=== PATIENT | female | born 1965 | race Caucasian/White ===

== ENCOUNTER 2017-10-09 11:20 | Emergency (ER) | payer SELFPAY ==
[2017-10-09 11:20] VITALS: BP 123/80; PULSE 90; RESP 18; TEMP 36.1; O2SAT 100; BMI 37.8
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
== END 2017-10-09 12:27 | disposition home or self-care (01) ==
LOC: ED 12:21
PROVIDERS: Emergency Provider Emergency Medicine; Family Provider Family Medicine; PCP Family Medicine
DX: S13.4XXA Sprain of ligaments of cervical spine, initial encounter (principal); S29.012A Strain of muscle and tendon of back wall of thorax, initial encounter; S16.1XXA Strain of muscle, fascia and tendon at neck level, initial encounter; V43.51XA Car driver injured in collision with sport utility vehicle in traffic accident, initial encounter; Y93.9 Activity, unspecified; Y92.410 Unspecified street and highway as the place of occurrence of the external cause; Y99.8 Other external cause status; F32.9 Major depressive disorder, single episode, unspecified; F41.9 Anxiety disorder, unspecified; Z72.0 Tobacco use
CPT/HCPCS: 99282

== ENCOUNTER 2019-06-25 10:07 | Inpatient (IN) | payer OTHER, SELFPAY ==
[2019-06-25] VITALS (11 sets, daily range): BP systolic 90–153; BP diastolic 53–64; PULSE 96–121; RESP 18–26; TEMP 36.6–38.3; O2SAT 94–98; BMI 33.5; BMI 34.6; BMI 34.7
--- NOTE | 2019-06-25 10:30 | EKG12_ITS ---
Test Reason : SOB Blood Pressure : / mmHG Vent. Rate : 113 BPM Atrial Rate : 113 BPM P-R Int : 142 ms QRS Dur : 086 ms QT Int : 318 ms P-R-T Axes : 054 014 045 degrees QTc Int : 436 ms Sinus tachycardia with Premature atrial complexes Otherwise normal ECG Confirmed by COLLEEN SCHROEDER, DONATO ([id number]), editor city [place] ROGERS ([id number]) on 06/30/2019 10:32:50 AM Referred By: WENDIE Confirmed By:REGAN MACIAS MD
--- NOTE | 2019-06-25 10:32 | ED.DCSUM_ITS ---
History of Present Illness Chief Complaint: Shortness of Breath Onset: Today Narrative: Patient presents for evaluation of shortness of breath. Patient tells me that she had had similar symptoms a few weeks ago but got better. Sunday she came home from work and felt exhausted. She notes headache, myalgias, cough, fever, and now shortness of breath. She states she is a smoker and has a diagnosis of COPD but does not take any medications for it. No vomiting or diarrhea. She states she is pretty much been in bed the past couple days has not really had much to eat or drink. Past Medical History - Allergies and Home Meds Allergies/Adverse Reactions: Allergies No Known Allergies Allergy (Verified 06/25/19 10:10) Primary Care Physician: Forrest Raphael MD [STAFF PHYSICIAN] - Surgical History: cholecystectomy, - - Breast reduction and tonsillectomy and adenoidectomy Smoking Status: Former smoker - Family History Maternal Family History: Reports: Heart Disease Review of Systems General: Reports: Chills, Fever, Malaise. Denies: Sweats Eyes: Denies: Visual changes - bilaterally, Diplopia ENT: Denies: Rhinorrhea, Sore throat Cardiovascular: Denies: Chest pain, Palpitations Respiratory: Reports: Dyspnea, Cough, Sputum, Dyspnea on exertion Gastrointestinal: Denies: Abdominal pain, Nausea, Vomiting, Diarrhea, Melena, Hematochezia Genitourinary: Denies: Dysuria, Hematuria, Frequency Musculoskeletal: Reports: Myalgias. Denies: Back pain, Extremity Pain Skin: Denies: Rash, Wounds Neurological: Reports: Headache. Denies: Weakness, Numbness Physical Exam Vital Signs/Narrative: Vital Signs Temp Pulse Resp BP Pulse Ox 06/25/19 10:25 115 H 96 06/25/19 10:08 98 F 121 H 22 H 153/58 H 98 Inital Vital Signs reviewed: Yes General: Well nourished, Well developed, No Acute Distress Head: Normocephalic, Atraumatic Eyes: Perrl, EOMI ENT: No rhinorrhea, Dry mucous membranes Neck: Supple, Nontender Cardiovascular: Regular rate, No murmurs, Tachycardia Respiratory: No distress, CTA bilaterally, Chest nontender, Rhonchi, Wheezing, Decreased Air Movement Abdomen: Soft, Nontender, Nondistended, Normal bowel sounds Back: Nontender, Normal Inspection Extremities: Nontender, No edema Skin: Normal color, No rash Neurological: Alert, Oriented x3, Cranial nerves II-XII grossly intact, Normal Strength, Normal Sensation Psychological: Normal affect, Normal Mood Diagnostic/Tx/Re-eval - Rhythm Strip Rhythm Strip: Sinus Tach Rate: 113 Ectopy: PAC(s) - Medical Decision Making Influenza was negative. White count elevated at 23,000. Normal lactic acid and troponin. Chest x-ray shows a hilar consolidation. This would be most consistent with pneumonia. A CT of the chest was obtained to rule out obvious tumor. She received aerosols, fluids, and antibiotics of Rocephin and azithromycin. She did spike a fever. Our plan is admission into the hospital. ED Disposition - Plan for ED Patient: Disposition: Acute Care Hospital [facility] Diagnosis: Pneumonia, Sepsis, Dehydration Referrals: Forrest Raphael MD [STAFF PHYSICIAN] -
[2019-06-25] MEDS: Ipratropium/Albuterol Sulfate 3 ML AMPUL.NEB INHALATION ×3 (10:50→20:29)
[2019-06-25] MEDS: Albuterol 2.5 MG/3 ML VIAL.NEB. INHALATION (10:50)
[2019-06-25] MEDS: 0.9% Normal Saline 1,000 ML 999 ML IV (11:01)
[2019-06-25 11:15] LABS: Absolute Lymphocyte Count 2.65 X10^3/uL (0.83-4.51); Absolute Neutrophil Count 18.5 X10^3/uL (2.0-7.7); Basophil# 0.07 X10^3/uL; Basophil% 0.3 % (0-1); Eosinophil# 0.02 X10^3/uL; Eosinophils% 0.1 % (0-5); Hematocrit 41.5 % (37-47); Lymphocyte # 2.65 X10^3/ul (4.0); Lymphocyte % 11.4 % (19-41); Mean Corp Hgb Conc 33.7 g/dL (32-36); Mean Corpuscular Hgb 31.3 pg (27.0-32.0); Mean Corpuscular Volume 92.8 fL (81-99); Mean Platelet Vol. 9.1 fl (6.2-12.0); Monocyte# 1.86 X10^3/uL; NRBC Flagged by Analyzer 0 % (0-5); Neutrophil # 18.53 X10^3/uL (2.7-7.7); Neutrophil % 79.8 % (47-70); POSITIVE DIFFERENTIAL YES; Platelet Count 222 K/mm3 (150-450); RBC Distribution Width CV 12.6 % (11.6-14.6); RBC Distribution Width SD 42.9 fl (35.1-43.9); Red Blood Count 4.47 M/mm3 (4.2-5.4); White Blood Count 23.2 K/mm3 (4.4-11.0)
--- NOTE | 2019-06-25 11:18 | RAD_ITS ---
STUDY: X-RAY CHEST REASON FOR EXAM: Female, 53 years old. Cough/sob/fever TECHNIQUE: PA and lateral views of the chest. COMPARISON: Comparison is made with prior study dated March 03, 2016. FINDINGS: EKG electrode are seen. Dense infiltrate in the superior segment of the left lower lobe. Possible enlargement of the left hilum. Radiographic follow-up is recommended. There is no demonstrated pleural abnormality. Normal size heart. Normal visualized pulmonary arteries. There is atherosclerotic calcification of the aortic arch with tortuosity. There are diffuse degenerative changes of the visualized thoracic spine. Normal visualized ribs, clavicles, and shoulders. Surgical clips are seen in the epigastric region. RAD/Chest PA and Lateral IMPRESSION: Dense infiltrate in the superior segment of the left upper lobe with findings suggestive of enlargement of the left hilum. CT scan is recommended for further evaluation. Electronically Signed: Marcos James, at 12:10 EST , Service support ,
[2019-06-25 11:20] LABS: Differential Indicated SCAN CRITERIA MET
[2019-06-25 11:34] LABS: Differential Comment SCANNED; Red Cell Morphology NORM C+C NORMAL (NORM C&C)
[2019-06-25 11:35] LABS: ALB/GLOB Ratio 0.7 RATIO (0.9-2.4); AST(SGOT) 10 U/L (15-37); Alanine Aminotransfer ALT/SGPT 15 U/L (13-56); Albumin, Serum 3.2 g/dL (3.2-5.0); Alkaline Phosphatase 69 U/L (45-117); Anion Gap 9 (5-15); BUN 15 mg/dL (7-18); BUN/Creat Ratio 16.6 RATIO (10-20); Calcium,Total 9.4 mg/dL (8.5-10.1); Chloride 106 mmol/L (98-107); EST Glomerular Filtration Rate 69 mL/min (>60); Est Glom Filt Rate - Afr Amer 83 mL/min (>60); Globulin 4.3 g/dL (2.2-4.2); Glucose 92 mg/dL (74-106); Protein, Total 7.5 g/dL (6.4-8.2); Sodium Level 136 mmol/L (136-145)
[2019-06-25] MEDS: Acetaminophen 500 MG Tablet 1000 MG PO (12:18)
--- NOTE | 2019-06-25 12:29 | CT_ITS ---
STUDY: CT CHEST WITH CONTRAST REASON FOR EXAM: Female, 53 years old. ABNORMAL CXR RADIATION DOSAGE (If Supplied By Facility): CTDIvol = ( 17.51 ) mGy, DLP = ( 851.68 ) mGycm TECHNIQUE: Transaxial imaging was performed following intravenous administration of IV 100mL Isovue-300. Multiplanar coronal and sagittal images were reformatted. Individualized dose optimization techniques were used for this CT. COMPARISON: Comparison is made with prior CT scan of the chest dated October 27, 2012 and prior chest graft done earlier today. FINDINGS: There is dense consolidation in the superior segment of the left lower lobe. There is no demonstrated pleural abnormality. There are calcifications of the coronary arteries. Minimal pericardial thickening anteriorly. There are multiple small lymph nodes within the mediastinum, which are normal in size and morphology most compatible with reactive lymph hyperplasia. Mild enlargement of the inferior left hilar lymph nodes. Normal enhanced pulmonary arteries. Normal aorta arch and descending thoracic aorta. There are multi-level degenerative changes of the thoracic spine. Small hiatal hernia. Surgical clips are seen in the epigastric region. Bilateral adrenal enlargement more prominent on the left side. CT/Chest WITH Contrast IMPRESSION: Dense infiltration in the superior segment of the left lower lobe with mildly increased markings in the left infrahilar region. Correlation with bronchoscopy is recommended for further evaluation. Bilateral adrenal enlargement. Electronically Signed: Marcos James, at 13:11 EST , Service support ,
[2019-06-25] MEDS: Ceftriaxone 1 GM/50 ML BAG IV (13:07)
[2019-06-25] MEDS: 0.9% Normal Saline 1,000 ML 150 ML IV ×2 (13:09→22:13)
--- NOTE | 2019-06-25 13:26 | PCM.HP.STD ---
Problem List (1) Irritable bowel syndrome (IBS) Status: Chronic Qualifiers: Irritable bowel syndrome type: unspecified Qualified Code(s): K58.9 - Irritable bowel syndrome without diarrhea (2) Pneumonia Status: Acute Qualifiers: Pneumonia type: due to unspecified organism Laterality: left Lung location: lower lobe of lung Qualified Code(s): J18.9 - Pneumonia, unspecified organism (3) Sepsis Status: Acute Qualifiers: Sepsis type: sepsis due to unspecified organism Sepsis acute organ dysfunction status: without acute organ dysfunction Qualified Code(s): A41.9 - Sepsis, unspecified organism (4) Active tobacco use Status: Chronic History of Present Illness Date of Admission: 06/25/19 Chief Complaint: Cough, shortness of breath, generalised malaise - 3 days The patient is a 53 year old F with past medical history of COPD, not on oxygen, chronic smoker, who comes in with complaints of cough, generalized weakness, shortness of breath ongoing for 3 days. 2 weeks prior to admission, patient had upper respiratory symptoms that lasted for about 4 days. She improved mildly except for fatigue. Over the last 3 days prior to admission, she has had progressive fatigue as well as persistent cough, sometimes productive of yellowish sputum, fever, chills and progressive shortness of breath. She denied any sick contact. She lives alone. Denies any chest pain or dizziness or palpitations. Vitals in the ED temperature of 98F, heart rate 121, blood pressure 153/58, respiratory 22, SPO2 is 98% on room air. BC count is 23.2, hemoglobin 14.0, platelet count 222, BMP is unremarkable, bilirubin is 1.4, AST is 10, ALT is 15, ALP 69. Chest x-ray shows dense infiltrate in the superior segment of the left upper lobe. CT scan of the chest shows dense infiltration of superior segment of the left lower lobe with mildly increased markings in the left infrahilar region. 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 Denies: Weight Change Eyes: Denies: Blurred vision, Cataracts, Conjunctivae Inflammation, Pain, Redness, Vision Change HEENT: Denies: Difficulty Hearing, Difficulty Swallowing, Head Aches, Hearing Changes, Sinus Congestion, Sinus Drainage Cardiovascular: Denies: Chest Pain, Claudication, Light Headedness, Orthopnea, Palpitations Respiratory: Reports: Cough, Shortness of Breath, Shortness of breath at rest, Shortness of breath upon exertion, Sputum production, Wheezing. Denies: Hemoptysis Gastrointestinal: Denies: Abdominal Pain, Constipation, Hematemesis, Hematochezia, Nausea, Vomiting Genitourinary: Denies: Dysuria, Frequency, Incontinence Musculoskeletal: Denies: Joint Pain, Joint stiffness, Joint swelling, Joint Tenderness Skin: Denies: Rash, Wounds Neurological: Denies: Difficulty swallowing, Focal weakness, Numbness, Tingling Psychiatric: Denies: Anxiety, Depression, Homicidal Ideations, Suicidal Ideations Hematologic/ Lymphatic: Denies: Easy Bruising, Easy Bleeding VTE Information - Inpt Only VTE Present on Admission: No VTE Pharm Prophylaxis ordered?: Yes Patient Problems: Active and Suspected Problems Pneumonia (Acute) Sepsis (Acute) Dehydration (Acute) - Physical Exam Vitals/I&O's: Vital Signs Temp Pulse Resp BP Pulse Ox 101.0 F H 107 H 18 90/62 94 06/25/19 11:47 06/25/19 13:11 06/25/19 13:11 06/25/19 13:11 06/25/19 13:11 Oxygen Delivery Method Room Air Weight: 94.347 kg Body Mass Index (BMI) 33.5 Intake and Output for Last 24 Hours 06/23/19 06/24/19 06/25/19 23:59 23:59 23:59 Intake Total 1000 / 1000 Balance 1000 / 1000 General: Alert, Oriented x3, Cooperative, - - in mild respiratory distress but not on oxygen HEENT: Atraumatic, PERRLA, EOMI, Normocephalic Oral: Moist Mucosa Neck: Supple Lungs: Diminished - coarse breath sounds, worse in left lower lobe, scattered wheezes Cardiovascular: Regular rate, Regular Rhythm, Normal S1, Normal S2, No murmurs, Tachycardic Abdomen: Bowel Sounds Present, Soft, Non Tender, Non-Distended, No Hepato-splenomegaly Extremities: No edema Skin: No rashes, No breakdown Musculoskeletal: No Tenderness to Palpation of Joints or Extremities Lymphatic: No Cervical, Supraclavicular, or Inguinal Adenopathy Neurological: Cranial nerves II-XII grossly intact, Neuro grossly intact Psych/Mental Status: Normal Affect, Appropriate Microbiology Past 72 Hours 06/25/19 11:05 Mucosa - Nose Influenza Types A,B Direct FA (ELIS) - Final Laboratory Results 06/25/19 11:00: WBC 23.2 H, RBC 4.47, Hgb 14.0, Hct 41.5, MCV 92.8, MCH 31.3, MCHC 33.7, RDW Std Deviation 42.9, RDW Coeff of Jackie 12.6, Plt Count 222, MPV 9.1, Immature Gran % (Auto) 0.400, Neut % (Auto) 79.8 H, Lymph % (Auto) 11.4 L, [place] % (Auto) 8.0, Eos % (Auto) 0.1, Baso % (Auto) 0.3, Absolute Neuts (auto) 18.5 H, Absolute Lymphs (auto) 2.65, Nucleated RBC % 0, Differential Comment SCANNED, Diff Path Review September, RBC Morphology NORM C+C 06/25/19 11:00: Lactic Acid 2.0 06/25/19 11:00: Sodium 136, Potassium 4.0, Chloride 106, Carbon Dioxide 21.0, Anion Gap 9, BUN 15, Creatinine 0.90, Estim Creat Clear Calc 66.90, Est GFR (MDRD) Af Amer 83, Est GFR (MDRD) Non-Af 69, BUN/Creatinine Ratio 16.6, Glucose 92, Calcium 9.4, Total Bilirubin 1.40 H, AST 10 L, ALT 15, Alkaline Phosphatase 69, Total Protein 7.5, Albumin 3.2, Globulin 4.3 H, Albumin/Globulin Ratio 0.7 L Current Medications Sodium Chloride () 1,000 mls @ 150 mls/hr IV .Q6H40M ONE Stop: 06/25/19 17:09 Last Admin: 06/25/19 13:09 Dose: 150 mls/hr Documented by: Assessment/Plan All Active Problems Pneumonia (Acute) Sepsis (Acute) Dehydration (Acute) COPD with acute exacerbation (Acute) Acute bronchitis (Acute) Acute hypoxemic respiratory failure (Acute) 53 year old F with past medical history of COPD, not on oxygen, chronic smoker, who comes in with complaints of cough, generalized weakness, shortness of breath ongoing for 3 days. 1. Sepsis secondary to Pneumonia (temperature 101, heart rate more than 90, respiratory rate more than 20, elevated WBC count) Lactic acid is 2.0. Source of infection is pneumonia Started on IV ceftriaxone and azithromycin; Continue same antibiotics, IVF 150mls/hr normal saline Repeat blood work in a.m. 2. Pneumonia, likely postviral, ongoing for 3 days, recent history of upper respiratory symptoms 2 weeks prior Infiltrate seen on chest x-ray and also on CT scan of the chest in the left lower lobe/hilar region Started on IV ceftriaxone and azithromycin Will continue same antibiotics, breathing treatments, incentive spirometer May need pulmonology outpatient follow-up 3. COPD, not in acute exacerbation, continue on scheduled breathing treatment 4. Anxiety/depression/irritable bowel syndrome, continue on escitalopram 5. DVT prophylaxis?low risk; early ambulation recommended Code Visit Inpatient E&M: 67507 Init Hosp L2
--- NOTE | 2019-06-25 13:30 | NURSING ---
111 PAINTSIL PNEUMONIA, SEPSIS
[2019-06-25 15:04] LABS: Reflex Lactate? Y
[2019-06-25 16:15] LABS: Lactic Acid 2.2 mmol/L (0.4-1.9)
[2019-06-26] VITALS (14 sets, daily range): BP systolic 93–118; BP diastolic 56–65; PULSE 63–90; RESP 16–22; TEMP 36.7–37.1; O2SAT 94–97
[2019-06-26] MEDS: 0.9% Normal Saline 1,000 ML 150 ML IV (05:05)
[2019-06-26 05:47] LABS: Absolute Lymphocyte Count 2.01 X10^3/uL (0.83-4.51); Absolute Neutrophil Count 8.2 X10^3/uL (2.0-7.7); Basophil# 0.02 X10^3/uL; Basophil% 0.2 % (0-1); Eosinophil# 0.28 X10^3/uL; Eosinophils% 2.4 % (0-5); Hematocrit 33.7 % (37-47); Hemoglobin 11.1 g/dL (12.0-15.0); Lymphocyte # 2.01 X10^3/ul (4.0); Lymphocyte % 17.2 % (19-41); Mean Corp Hgb Conc 32.9 g/dL (32-36); Mean Corpuscular Hgb 30.7 pg (27.0-32.0); Mean Corpuscular Volume 93.4 fL (81-99); Mean Platelet Vol. 9.8 fl (6.2-12.0); Monocyte# 1.09 X10^3/uL; Monocyte% 9.3 % (0-10); NRBC Flagged by Analyzer 0 % (0-5); Neutrophil # 8.24 X10^3/uL (2.7-7.7); Neutrophil % 70.7 % (47-70); Platelet Count 168 K/mm3 (150-450); RBC Distribution Width CV 12.8 % (11.6-14.6); RBC Distribution Width SD 44.1 fl (35.1-43.9); Red Blood Count 3.61 M/mm3 (4.2-5.4); White Blood Count 11.7 K/mm3 (4.4-11.0)
[2019-06-26 06:09] LABS: ALB/GLOB Ratio 0.7 RATIO (0.9-2.4); AST(SGOT) 8 U/L (15-37); Alanine Aminotransfer ALT/SGPT 14 U/L (13-56); Albumin, Serum 2.5 g/dL (3.2-5.0); Alkaline Phosphatase 56 U/L (45-117); Anion Gap 4 (5-15); BUN 11 mg/dL (7-18); BUN/Creat Ratio 21.7 RATIO (10-20); Calcium,Total 8.2 mg/dL (8.5-10.1); Chloride 110 mmol/L (98-107); Creatinine, Serum 0.51 mg/dL (0.55-1.02); EST Glomerular Filtration Rate 135 mL/min (>60); Est Glom Filt Rate - Afr Amer 163 mL/min (>60); Estimated Creatinine Clearance 118.05 ml/min; Globulin 3.7 g/dL (2.2-4.2); Glucose 87 mg/dL (74-106); Potassium 3.6 mmol/L (3.5-5.1); Protein, Total 6.2 g/dL (6.4-8.2); Sodium Level 137 mmol/L (136-145)
[2019-06-26] MEDS: Escitalopram Oxalate 10 MG Tablet PO (09:31)
[2019-06-26 10:26] LABS: Bedside Glucose 150 mg/dL (70-110)
--- NOTE | 2019-06-26 10:30 | NURSING ---
ambulated patient in hallway for walking spo2. pt remained 97% on room air. however, patient became nauseous, diaphoretic, and light headed. another nurse had to grab a wheel chair for the patient & wheeled pt back to room. BG obtained at 150. VSS. Notified dr rodriguez.
--- NOTE | 2019-06-26 10:32 | CASEMGMT ---
Assessment- SW completed assessment with patient Living situation- Patient lives alone in a 1 level home with no entry steps PCP: Sidney Cameron PA-C with [facility] Specialists: None, however physician wants patient to follow up with Dr Machado at d/c. Pharmacy: [facility] DME: None ADL's/IADL's: Patient is independent in all adls and iadls Past SNF/rehab: none Past HH: none LW: SW completed with patient this visit POA: SW completed with patient this visit SW spoke with patient and she is independent in all activities. She does not anticipate any needs at discharge. SW did complete Healthcare Power of Senior Oracle Adf Developer and Healthcare Living Will with patient. Copies were made and given to patient. A copy of each was also placed in patient's chart. Plan: Home no needs Chanel APPLE MSW
[2019-06-26] MEDS: Ipratropium/Albuterol Sulfate 3 ML AMPUL.NEB INHALATION ×2 (10:44→19:24)
[2019-06-26 11:38] LABS: Pathologist Review Reviewed
--- NOTE | 2019-06-26 12:03 | PCM.DC ---
- Discharge Diagnoses Current Active Problems: Current Active and Chronic Problems Pneumonia (Acute) Sepsis (Acute) Dehydration (Acute) Irritable bowel syndrome (IBS) (Chronic) Reason(s) for Visit for Discharge Instructions: Cogh, shortness of breath You will use the following diet at home:: Regular Your food should be the consistency of: Regular Your liquids should be the consistency of: Regular/Thin Discharge Activity: Return to Normal Activity Instructions: What Is Pneumonia?, Preventing Pneumonia, Treating Pneumonia, Getting Support for Quitting Smoking, Using a Nebulizer (Adult), Tips for Quitting Smoking (Cardiovascular), Planning to Quit Smoking, Staying Smoke-Free, The Benefits of Living Smoke Free Additional Instructions: Continue to take all your medications as prescribed. Continue to use your incentive spirometer. Complete your antibiotics. Follow-up with your primary care doctor. You have been referred to see a lung doctor for COPD Allergies/Adverse Reactions: Allergies No Known Allergies Allergy (Verified 06/25/19 10:10) Medications to take at Discharge Escitalopram Oxalate [Lexapro] 10 mg PO DAILY 06/25/19 Acetaminophen [Tylenol Tablet] 650 mg PO Q6H PRN PRN tab 06/26/19 Albuterol IH (ProAir) [Proair Hfa] 1 - 2 puff INHALATION Q4H PRN PRN 1 Days #1 inhaler 06/26/19 Amox/Clavulanate Tablet [Augmentin Tablet] 875 mg PO Q12H 6 Days #12 tab 06/26/19 Azithromycin 500 mg PO DAILY 1 Days #1 tab 06/26/19 Ensure Enlive 120 ml PO 4X/DAY 30 Days #120 liquid 06/26/19 Nicotine Polacrilex [Nicotine Gum] 2 mg BC Q2H PRN PRN #100 gum 06/26/19 Nicotine [Nicotine Patch] 1 ea TD DAILY 30 Days #30 [id number] 06/26/19 The following prescriptions were given: Amox/Clavulanate Tablet [Augmentin Tablet] 875 mg PO Q12H 6 Days #12 tab Transmission Status: Pending to [facility] Azithromycin 500 mg PO DAILY 1 Days #1 tab Transmission Status: Pending to [facility] Ensure Enlive 120 ml PO 4X/DAY 30 Days #120 liquid Transmission Status: Pending to [facility] Nicotine Polacrilex [Nicotine Gum] 2 mg BC Q2H PRN PRN #100 gum PRN Reason: Nicotine Craving Transmission Status: Pending to [facility] Nicotine [Nicotine Patch] 1 ea TD DAILY 30 Days #30 [id number] Transmission Status: Pending to [facility] Primary Care Physician: Forrest Raphael MD [STAFF PHYSICIAN] - Please follow up with your Primary Care Physician in: within 1-2 weeks Test Results: Test results from this visit will be discussed in further detail at your follow-up appointment, if applicable. Please Follow Up With: Israel Machado MD When: within 2 weeks Please Follow Up With: Savita Cameron PA Proposed Discharge Date: 06/26/19
--- NOTE | 2019-06-26 12:07 | DS.PCM_ITS ---
Discharge Date and Diagnosis - Problem List Patient Problems: Active and Suspected Problems Pneumonia (Acute) Sepsis (Acute) Dehydration (Acute) Date of Admission: 06/25/19 Date of Discharge: 06/26/19 - Primary Discharge Diagnosis Active and Suspected Problems Pneumonia (Acute) Sepsis (Acute) Nicotine dependence - Secondary Discharge Diagnosis Chronic Problems Irritable bowel syndrome (IBS) (Chronic) Active tobacco use (Chronic) Chronic right hip pain (Chronic) Hospital Course and Treatment Imaging Results: Clinical Impression(s) from Imaging Studies Chest X-Ray 06/25/19 11:18 IMPRESSION: Dense infiltrate in the superior segment of the left upper lobe with findings suggestive of enlargement of the left hilum. CT scan is recommended for further evaluation. Electronically Signed: Marcos Jacob, at 12:10 EST , Service support , Chest CT 06/25/19 12:29 IMPRESSION: Dense infiltration in the superior segment of the left lower lobe with mildly increased markings in the left infrahilar region. Correlation with bronchoscopy is recommended for further evaluation. Bilateral adrenal enlargement. Electronically Signed: Marcos James, at 13:11 EST , Service support , None Operations: None Procedures: None Summary of Care Provided: 53 year old F with past medical history of COPD, not on oxygen, chronic smoker, who comes in with complaints of cough, generalized weakness, shortness of breath ongoing for 3 days. 1. Sepsis secondary to Pneumonia (temperature 101, heart rate more than 90, respiratory rate more than 20, elevated WBC count) Lactic acid is 2.0. Source of infection is pneumonia Started on IV ceftriaxone and azithromycin continued on Augmentin and azithro mycin(3 days total) to complete 1 week therapy 2. Pneumonia, likely postviral, ongoing for 3 days, recent history of upper respiratory symptoms 2 weeks prior I treatment as above, encourage use of incentive spirometer, pulmonology outpatient follow-up within 2 weeks 3. COPD, not in acute exacerbation, managed on scheduled breathing treatment 4. Anxiety/depression/irritable bowel syndrome, continued on escitalopram 5. Nicotine dependence, advised to quit, given nicotine patches and gum Patient appears to have improved much quicker than anticipated. Hence her discharge Patient Problems: Active and Suspected Problems Pneumonia (Acute) Sepsis (Acute) Dehydration (Acute) Subjective: On the day of discharge, patient was seen and examined. She complains of some nausea and lost her IV access. She was given p.o. Zofran and antibiotics orally. Denied any fever or chills. Remains off oxygen. Did not qualify for oxygen on ambulation. Objective: General: Alert, Oriented x3, Cooperative, - - in mild respiratory distress but not on oxygen HEENT: Atraumatic, PERRLA, EOMI, Normocephalic Oral: Moist Mucosa Neck: Supple Lungs: Diminished - coarse breath sounds, worse in left lower lobe, scattered wheezes Cardiovascular: Regular rate, Regular Rhythm, Normal S1, Normal S2, No murmurs, Tachycardic Abdomen: Bowel Sounds Present, Soft, Non Tender, Non-Distended, No Hepato- splenomegaly Extremities: No edema Skin: No rashes, No breakdown Musculoskeletal: No Tenderness to Palpation of Joints or Extremities Lymphatic: No Cervical, Supraclavicular, or Inguinal Adenopathy Neurological: Cranial nerves II-XII grossly intact, Neuro grossly intact Psych/Mental Status: Normal Affect, Appropriate - Physical Exam Vitals/I&O's: Vital Signs Temp Pulse Resp BP Pulse Ox 98.1 F 90 16 113/65 94 06/26/19 08:25 06/26/19 10:45 06/26/19 10:45 06/26/19 08:25 06/26/19 10:45 Oxygen Delivery Method Room Air Weight: 98.1 kg Body Mass Index (BMI) 34.6 Intake and Output for Last 24 Hours 06/24/19 06/25/19 06/26/19 23:59 23:59 23:59 Intake Total 3665.0 / 3665.0 1857.5 / 1857.5 Balance 3665.0 / 3665.0 1857.5 / 1857.5 Microbiology Past 72 Hours 06/25/19 11:05 Mucosa - Nose Influenza Types A,B Direct FA (ELIS) - Final Laboratory Results 06/25/19 11:00: Diff Path Review Reviewed 06/25/19 15:32: Lactic Acid 2.2 H* 06/26/19 04:39: WBC 11.7 H, RBC 3.61 L, Hgb 11.1 L, Hct 33.7 L, MCV 93.4, MCH 30.7, MCHC 32.9, RDW Std Deviation 44.1 H, RDW Coeff of Jackie 12.8, Plt Count 168, MPV 9.8, Immature Gran % (Auto) 0.200, Neut % (Auto) 70.7 H, Lymph % (Auto) 17.2 L, [place] % (Auto) 9.3, Eos % (Auto) 2.4, Baso % (Auto) 0.2, Absolute Neuts (auto) 8.2 H, Absolute Lymphs (auto) 2.01, Nucleated RBC % 0 06/26/19 04:39: Sodium 137, Potassium 3.6, Chloride 110 H, Carbon Dioxide 23.0, Anion Gap 4 L, BUN 11, Creatinine 0.51 L, Estim Creat Clear Calc 118.05, Est GFR (MDRD) Af Amer 163, Est GFR (MDRD) Non-Af 135, BUN/Creatinine Ratio 21.7 H, Glucose 87, Calcium 8.2 L, Total Bilirubin 0.50, AST 8 L, ALT 14, Alkaline Phosphatase 56, Total Protein 6.2 L, Albumin 2.5 L, Globulin 3.7, Albumin/Globulin Ratio 0.7 L 06/26/19 04:39: Magnesium Pending 06/26/19 10:21: POC Glucose 150 H Current Medications Acetaminophen (Tylenol) 650 mg PO Q6H PRN PRN PRN Reason: Pain Score 1-10/Temp > 100.7 F Albuterol/Ipratropium (Duoneb) 3 ml INHALATION Q4HWA.RT [facility] Last Admin: 06/26/19 10:44 Dose: 3 ml Documented by: Amoxicillin/Clavulanate Potassium (Augmentin Tablet) 875 mg PO BID [facility] Azithromycin (Zithromax) 500 mg PO Q24 [facility] Escitalopram Oxalate (Lexapro) 10 mg PO DAILY [facility] Last Admin: 06/26/19 09:31 Dose: 10 mg Documented by: Sodium Chloride () 250 mls @ 15 mls/hr IV .[id number] PRN PRN Reason: Saline Flush Sodium Chloride () 250 mls @ 15 mls/hr IV .[id number] PRN PRN Reason: Additional IVPB Infusion Nutritional Formula (Lactose Free) (Ensure Enlive) 120 ml PO 4X/DAY [facility] Last Admin: 06/26/19 09:31 Dose: Not Given Documented by: Ondansetron HCl (Zofran) 4 mg IV Q8H PRN PRN PRN Reason: NAUSEA/VOMITING Ondansetron HCl (Zofran Odt) 4 mg PO Q8H PRN PRN PRN Reason: NAUSEA/VOMITING Sodium Chloride () 10 - 40 ml IV UD PRN PRN Reason: SALINE FLUSH Discharge Diet: No Restrictions Discharge Activity: Return to Normal Activity Home Medications: Medications to take at Discharge Escitalopram Oxalate [Lexapro] 10 mg PO DAILY 06/25/19 Acetaminophen [Tylenol Tablet] 650 mg PO Q6H PRN PRN tab 06/26/19 Albuterol IH (ProAir) [Proair Hfa] 1 - 2 puff INHALATION Q4H PRN PRN 1 Days #1 inhaler 06/26/19 Amox/Clavulanate Tablet [Augmentin Tablet] 875 mg PO Q12H 6 Days #12 tab 06/26/19 Azithromycin 500 mg PO DAILY 1 Days #1 tab 06/26/19 Ensure Enlive 120 ml PO 4X/DAY 30 Days #120 liquid 06/26/19 Nicotine Polacrilex [Nicotine Gum] 2 mg BC Q2H PRN PRN #100 gum 06/26/19 Nicotine [Nicotine Patch] 1 ea TD DAILY 30 Days #30 [email or web address] 06/26/19 Following Prescrptions Were Given to Patient: Amox/Clavulanate Tablet [Augmentin Tablet] 875 mg PO Q12H 6 Days #12 tab Transmission Status: Received by [facility] Azithromycin 500 mg PO DAILY 1 Days #1 tab Transmission Status: Received by [facility] Ensure Enlive 120 ml PO 4X/DAY 30 Days #120 liquid Transmission Status: Received by [facility] Nicotine Polacrilex [Nicotine Gum] 2 mg BC Q2H PRN PRN #100 gum PRN Reason: Nicotine Craving Transmission Status: Received by [facility] Nicotine [Nicotine Patch] 1 ea TD DAILY 30 Days #30 [email or web address] Transmission Status: Received by [facility] Albuterol IH (ProAir) [Proair Hfa] 1 - 2 puff INHALATION Q4H PRN PRN 1 Days #1 inhaler PRN Reason: Sob &/Or Wheezing Transmission Status: Received by [facility] Primary Care Physician: Forrest Raphael MD [STAFF PHYSICIAN] - Please follow up with your Primary Care Physician in: within 1-2 weeks Please Follow Up With: Israel Machado MD When: within 2 weeks Please Follow Up With: Savita Cameron PA Patient Instructions: Tips for Quitting Smoking (Cardiovascular), What Is Pneumonia?, Preventing Pneumonia, Treating Pneumonia, Planning to Quit Smoking, Getting Support for Quitting Smoking, Staying Smoke-Free, The Benefits of Living Smoke Free, Using a Nebulizer (Adult) Disposition: Home Minutes spent on discharge:: 40 Patient Condition:: Stable Medical Necessity - Tobacco Use Smoking Status: Current every day smoker Tobacco Use: Cigarettes Meaningful Use Info Meaningful Use Diagnoses (Choose all that apply): None applicable Code Visit Inpatient E&M: 38433 Disch Hosp
[2019-06-26] MEDS: Ondansetron ODT 4 MG Tablet PO (12:35)
--- NOTE | 2019-06-26 12:41 | CASEMGMT ---
CATALINA JAMISON NOTE: Dr Padilla asked for CATALINA JAMISON to check on pt's out-of-cost for medications E-scribed to [facility]. Call placed to [facility] at this time. Pt has not co-pay for the Nicotine gum, patch, or Pro-Air inhaler. Cost of both antibiotics combined will be under $9. Per tech @ [facility], the [facility] specialist is working on getting Ensure enlive processed through insurance. Pt made aware of all of the above. She states she does not want and will not be picking up the Ensure Enlive. Call placed back to [facility] and they were made aware. Toribio LEBLANC RN CM
[2019-06-26 13:03] LABS: Magnesium 2.2 mg/dL (1.6-2.6)
[2019-06-26] MEDS: Azithromycin 250 MG Tablet 500 MG PO (13:41)
[2019-06-26] MEDS: Amox/Clavulanate 875 MG Tablet PO ×2 (13:41→17:59)
--- NOTE | 2019-06-26 15:12 | PN_ITS ---
Patient Problems: Active and Suspected Problems Pneumonia (Acute) Sepsis (Acute) Dehydration (Acute) Reason for Visit: Follow-up on pneumonia Subjective: Patient was seen and examined. She feels improved but feels flushed and sweaty with occasional feeling cold. Her breathing is better. She was off balance on ambulation. Vitals/I&O's: Vital Signs Temp Pulse Resp BP Pulse Ox 98.6 F 65 20 H 118/56 L 96 06/26/19 14:25 06/26/19 14:25 06/26/19 14:25 06/26/19 14:25 06/26/19 14:25 Oxygen Delivery Method Room Air Weight: 98.1 kg Body Mass Index (BMI) 34.6 Intake and Output for Last 24 Hours 06/24/19 06/25/19 06/26/19 23:59 23:59 23:59 Intake Total 3665.0 / 3665.0 2552.5 / 2552.5 Balance 3665.0 / 3665.0 2552.5 / 2552.5 General: Alert, Oriented x3, Cooperative, No apparent distress HEENT: Atraumatic, PERRLA, EOMI, Normocephalic Oral: Moist Mucosa Neck: Supple Lungs: Clear to auscultation, Normal air movement Cardiovascular: Regular rate, Regular Rhythm, Normal S1, Normal S2, No murmurs Abdomen: Bowel Sounds Present, Soft, Non Tender, Non-Distended, No Hepato- splenomegaly Extremities: No edema Skin: No rashes Musculoskeletal: No Tenderness to Palpation of Joints or Extremities Lymphatic: No Cervical, Supraclavicular, or Inguinal Adenopathy Neurological: Cranial nerves II-XII grossly intact, Neuro grossly intact Psych/Mental Status: Normal Affect, Appropriate Microbiology Past 72 Hours 06/25/19 11:05 Mucosa - Nose Influenza Types A,B Direct FA (ELIS) - Final Laboratory Results 06/25/19 11:00: Diff Path Review Reviewed 06/25/19 15:32: Lactic Acid 2.2 H* 06/26/19 04:39: WBC 11.7 H, RBC 3.61 L, Hgb 11.1 L, Hct 33.7 L, MCV 93.4, MCH 30.7, MCHC 32.9, RDW Std Deviation 44.1 H, RDW Coeff of Jackie 12.8, Plt Count 168, MPV 9.8, Immature Gran % (Auto) 0.200, Neut % (Auto) 70.7 H, Lymph % (Auto) 17.2 L, [place] % (Auto) 9.3, Eos % (Auto) 2.4, Baso % (Auto) 0.2, Absolute Neuts (auto) 8.2 H, Absolute Lymphs (auto) 2.01, Nucleated RBC % 0 06/26/19 04:39: Sodium 137, Potassium 3.6, Chloride 110 H, Carbon Dioxide 23.0, Anion Gap 4 L, BUN 11, Creatinine 0.51 L, Estim Creat Clear Calc 118.05, Est GFR (MDRD) Af Amer 163, Est GFR (MDRD) Non-Af 135, BUN/Creatinine Ratio 21.7 H, Glucose 87, Calcium 8.2 L, Total Bilirubin 0.50, AST 8 L, ALT 14, Alkaline Phosphatase 56, Total Protein 6.2 L, Albumin 2.5 L, Globulin 3.7, Albumin/Globulin Ratio 0.7 L 06/26/19 04:39: Magnesium 2.2 06/26/19 10:21: POC Glucose 150 H Current Medications Acetaminophen (Tylenol) 650 mg PO Q6H PRN PRN PRN Reason: Pain Score 1-10/Temp > 100.7 F Albuterol/Ipratropium (Duoneb) 3 ml INHALATION Q4HWA.RT [facility] Last Admin: 06/26/19 10:44 Dose: 3 ml Documented by: Amoxicillin/Clavulanate Potassium (Augmentin Tablet) 875 mg PO BIDCM [facility] Last Admin: 06/26/19 13:41 Dose: 875 mg Documented by: Azithromycin (Zithromax) 500 mg PO Q24 [facility] Last Admin: 06/26/19 13:41 Dose: 500 mg Documented by: Escitalopram Oxalate (Lexapro) 10 mg PO DAILY [facility] Last Admin: 06/26/19 09:31 Dose: 10 mg Documented by: Sodium Chloride () 250 mls @ 15 mls/hr IV .[id number] PRN PRN Reason: Saline Flush Sodium Chloride () 250 mls @ 15 mls/hr IV .[id number] PRN PRN Reason: Additional IVPB Infusion Nutritional Formula (Lactose Free) (Ensure Enlive) 120 ml PO 4X/DAY [facility] Last Admin: 06/26/19 13:43 Dose: Not Given Documented by: Ondansetron HCl (Zofran) 4 mg IV Q8H PRN PRN PRN Reason: NAUSEA/VOMITING Ondansetron HCl (Zofran Odt) 4 mg PO Q8H PRN PRN PRN Reason: NAUSEA/VOMITING Last Admin: 06/26/19 12:35 Dose: 4 mg Documented by: Sodium Chloride () 10 - 40 ml IV UD PRN PRN Reason: SALINE FLUSH STROKE Vital Signs/Narrative: Vital Signs Temp Pulse Resp BP Pulse Ox 06/26/19 14:25 98.6 F 65 20 H 118/56 L 96 Medical Necessity - Tobacco Use Smoking Status: Current every day smoker Tobacco Use: Cigarettes Assessment/Plan All Active Problems Pneumonia (Acute) Sepsis (Acute) Dehydration (Acute) COPD with acute exacerbation (Acute) Acute bronchitis (Acute) Acute hypoxemic respiratory failure (Acute) 53 year old F with past medical history of COPD, not on oxygen, chronic smoker, who comes in with complaints of cough, generalized weakness, shortness of breath ongoing for 3 days. 1. Sepsis secondary to Pneumonia (temperature 101, heart rate more than 90, respiratory rate more than 20, elevated WBC count), mildly improved Continue on Augmentin and azithromycin 2. Pneumonia, likely postviral, ongoing for 3 days, recent history of upper respiratory symptoms 2 weeks prior Infiltrate seen on chest x-ray and also on CT scan of the chest in the left lower lobe/hilar region Started on antibiotics, breathing treatments, incentive spirometer Pulmonology outpatient follow-up planned. 3. COPD, not in acute exacerbation, continue on scheduled breathing treatment 4. Anxiety/depression/irritable bowel syndrome, continue on escitalopram 5. DVT prophylaxis?low risk; early ambulation recommended Code Visit Inpatient E&M: 39661 Subs Hosp L2
--- NOTE | 2019-06-26 15:30 | NURSING ---
attempted ambulating patient in the [place] at this time to reassess. patient's oxygenation stable and denies SOB. pt unsteady gait at times, states that she has been this way for awhile, but worse the past few days and states 'I think it's related to my nerve problems.' updated dr rodriguez.
[2019-06-27] VITALS (7 sets, daily range): BP systolic 109–134; BP diastolic 66–89; PULSE 73–96; RESP 16–18; TEMP 36.6–36.9; O2SAT 93–100
[2019-06-27] MEDS: Ipratropium/Albuterol Sulfate 3 ML AMPUL.NEB INHALATION ×2 (06:49→10:49)
--- NOTE | 2019-06-27 09:02 | NURSING ---
Pt refusing to keep tele on at this time- states she is to be d/c'ed today.
[2019-06-27] MEDS: Amox/Clavulanate 875 MG Tablet PO (09:06)
[2019-06-27] MEDS: Escitalopram Oxalate 10 MG Tablet PO (09:07)
[2019-06-27] MEDS: Azithromycin 250 MG Tablet 500 MG PO (09:07)
--- NOTE | 2019-06-27 09:09 | NURSING ---
pt reports that she attempted to give sputum sample- but was told there was not enough in the cup. Pt states she is unable to provide.
--- NOTE | 2019-06-30 14:32 | CASEMGMT ---
CATALINA JAMISON DC PHONE CALL DC DATE: 06.27.2019 DC Disposition: Home Diagnosis on Discharge: Pneumonia, sepsis LACE/STRATA: 02/20 Intro role of CM to patient. She states she is feeling improved. States she saw MORELIA Callahan and is cancelling her appt with pulmonology at his request. Pt states she will f/u with PCP only. Reviewed medications and no questions. No care improvement suggestions given. No further concerns noted. Sera CARBAJALN RN ACM
== END 2019-06-27 13:39 | disposition home or self-care (01) | DRG 871 ==
LOC: ED 13:24 → PCU 13:47
PROVIDERS: Admitting Provider Internal Medicine; Emergency Provider Emergency Medicine; PCP Physician Assistant; Visit Provider Internal Medicine
DX: A41.9 Sepsis, unspecified organism (principal); J18.9 Pneumonia, unspecified organism; J44.0 Chronic obstructive pulmonary disease with (acute) lower respiratory infection; K58.9 Irritable bowel syndrome, unspecified; F32.9 Major depressive disorder, single episode, unspecified; F41.9 Anxiety disorder, unspecified; F17.210 Nicotine dependence, cigarettes, uncomplicated; Z98.84 Bariatric surgery status
CPT/HCPCS: 36415; 71046; 71260; 80053; 82962; 83605; 83735; 85025; 87040; 87804; 93005; 94640; 97161; 97166; 97530; 97802; 99251; 99283; J7030; Q9967; A4216; G0463

== ENCOUNTER 2020-02-18 09:04 | Observation (INO) | payer OTHER, SELFPAY ==
[2019-06-25 14:16] VITALS: BMI 34.6
[2020-02-18] VITALS (15 sets, daily range): BP systolic 107–152; BP diastolic 57–97; PULSE 68–118; RESP 17–32; TEMP 35.3–37.1; O2SAT 92–98; BMI 37.3; BMI 37.0; BMI 37.1
--- NOTE | 2020-02-18 09:16 | EKG12_ITS ---
Test Reason : SOB Blood Pressure : / mmHG Vent. Rate : 098 BPM Atrial Rate : 098 BPM P-R Int : 144 ms QRS Dur : 088 ms QT Int : 344 ms P-R-T Axes : 061 017 056 degrees QTc Int : 439 ms Sinus rhythm with Premature atrial complexes Otherwise normal ECG Confirmed by ZANDER SCHROEDER, SIMON ([id number]), dumb waiter operator SUJATA LORD ([id number]) on 02/23/2020 2:20:06 PM Referred By: WENDIE Confirmed By:SIMON FERMIN MD
--- NOTE | 2020-02-18 09:18 | ED.DCSUM_ITS ---
History of Present Illness Chief Complaint: Shortness of Breath Informant: Patient Narrative: 54-year-old female with a history of COPD and heavy tobacco use reports 2 to 3 days of progressive shortness of breath. She notes a cough that is nonproductive. She states last night was the worst. She was able to lay down a little bit. She denies any rhinorrhea sore throat fevers. No change in bowel routine. No rashes. - Past Medical History (1) COPD with acute exacerbation Status: Chronic (2) Chronic right hip pain Status: Chronic (3) Irritable bowel syndrome (IBS) Status: Chronic Past Medical History - Allergies and Home Meds Allergies/Adverse Reactions: Allergies No Known Allergies Allergy (Verified 02/18/20 09:13) Primary Care Physician: Savita Camerno PA [Primary Care Provider] - Prior records reviewed: Yes Surgical History: cholecystectomy, - - Breast reduction and tonsillectomy and adenoidectomy, s/p bariatric surgery Smoking Status: Current every day smoker Drugs: None - Family History Paternal Family History: Reports: Unknown Maternal Family History: Reports: Heart Disease Review of Systems General: Reports: Chills, Sweats. Denies: Fever Eyes: Denies: Visual changes - bilaterally, Diplopia ENT: Denies: Rhinorrhea, Sore throat Cardiovascular: Reports: Palpitations. Denies: Chest pain Respiratory: Reports: Dyspnea, Cough, Dyspnea on exertion. Denies: Sputum Gastrointestinal: Denies: Abdominal pain, Nausea, Vomiting, Diarrhea, Melena, Hematochezia Genitourinary: Denies: Dysuria, Hematuria, Frequency Musculoskeletal: Denies: Back pain, Extremity Pain Skin: Denies: Rash, Wounds Neurological: Denies: Headache, Weakness, Numbness Physical Exam Vital Signs/Narrative: Vital Signs Temp Pulse Resp BP Pulse Ox 02/18/20 09:13 95.6 F L 68 32 H 147/67 H 98 02/18/20 09:04 95.6 F L 68 32 H 147/67 H 98 General: Well nourished, Well developed, No Acute Distress Head: Normocephalic, Atraumatic Eyes: Perrl, EOMI ENT: Moist mucous membranes, No rhinorrhea Neck: Supple, Nontender Cardiovascular: Regular rate, Regular rhythm, No murmurs Respiratory: Chest nontender, Rhonchi, Wheezing, - - Patient is tachypneic with mild to moderate distress. Use of accessory muscles. Abdomen: Soft, Nontender, Nondistended, Normal bowel sounds Back: Nontender, Normal Inspection Extremities: Nontender, No edema Skin: Normal color, No rash Neurological: Alert, Oriented x3, Cranial nerves II-XII grossly intact, Normal Strength, Normal Sensation Psychological: Normal affect, Normal Mood Diagnostic/Tx/Re-eval Laboratory Last Values WBC 8.5 K/mm3 (4.4-11.0) 02/18/20 09:17 RBC 4.87 M/mm3 (4.2-5.4) 02/18/20 09:17 Hgb 15.4 g/dL (12.0-15.0) H 02/18/20 09:17 Hct 46.4 % (37-47) 02/18/20 09:17 MCV 95.3 fL (81-99) 02/18/20 09:17 MCH 31.6 pg (27.0-32.0) 02/18/20 09:17 MCHC 33.2 g/dL (32-36) 02/18/20 09:17 RDW Std Deviation 43.1 fl (35.1-43.9) 02/18/20 09:17 RDW Coeff of Jackie 12.4 % (11.6-14.6) 02/18/20 09:17 Plt Count 258 K/mm3 (150-450) 02/18/20 09:17 MPV 9.5 fl (6.2-12.0) 02/18/20 09:17 Immature Gran % (Auto) 0.100 % (0.0-0.9) 02/18/20 09:17 Neut % (Auto) 42.6 % (47-70) L 02/18/20 09:17 Lymph % (Auto) 38.9 % (19-41) 02/18/20 09:17 [place] % (Auto) 11.9 % (0-10) H 02/18/20 09:17 Eos % (Auto) 6.1 % (0-5) H 02/18/20 09:17 Baso % (Auto) 0.4 % (0-1) 02/18/20 09:17 Absolute Neuts (auto) 3.6 X10^3/uL (2.0-7.7) 02/18/20 09:17 Absolute Lymphs (auto) 3.32 X10^3/uL (0.83-4.51) 02/18/20 09:17 Nucleated RBC % 0 % (0-5) 02/18/20 09:17 PT 12.3 SECONDS (11.7-14.9) 02/18/20 09:17 INR 1.0 02/18/20 09:17 APTT 27.2 Seconds (24.1-36.2) 02/18/20 09:17 Sodium 139 mmol/L (136-145) 02/18/20 09:17 Potassium 4.6 mmol/L (3.5-5.1) 02/18/20 09:17 Chloride 111 mmol/L (98-107) H 02/18/20 09:17 Carbon Dioxide 23.0 mmol/L (21.0-32.0) 02/18/20 09:17 Anion Gap 5 (5-15) 02/18/20 09:17 BUN 12 mg/dL (7-18) 02/18/20 09:17 Creatinine 0.83 mg/dL (0.55-1.02) 02/18/20 09:17 Estim Creat Clear Calc 68.91 ml/min 02/18/20 09:17 Est GFR (MDRD) Af Amer 92 mL/min (>60) 02/18/20 09:17 Est GFR (MDRD) Non-Af 76 mL/min (>60) 02/18/20 09:17 BUN/Creatinine Ratio 14.4 RATIO (10-20) 02/18/20 09:17 Glucose 90 mg/dL (74-106) 02/18/20 09:17 Lactic Acid 1.5 mmol/L (0.4-1.9) 02/18/20 09:17 Calcium 9.3 mg/dL (8.5-10.1) 02/18/20 09:17 Total Bilirubin 0.40 mg/dL (0.20-1.00) 02/18/20 09:17 AST 22 U/L (15-37) 02/18/20 09:17 ALT 24 U/L (13-56) 02/18/20 09:17 Alkaline Phosphatase 77 U/L (45-117) 02/18/20 09:17 Troponin I < 0.015 ng/mL (<0.045) 02/18/20 09:17 B-Natriuretic Peptide 14.7 pg/mL (0-100) 02/18/20 09:17 Total Protein 7.8 g/dL (6.4-8.2) 02/18/20 09:17 Albumin 3.7 g/dL (3.2-5.0) 02/18/20 09:17 Globulin 4.1 g/dL (2.2-4.2) 02/18/20 09:17 Albumin/Globulin Ratio 0.9 RATIO (0.9-2.4) 02/18/20 09:17 - EKG Initial EKG Interpretation: Sinus Rhythm - EKG demonstrates a sinus rhythm with PACs at a rate of 98 without concerning features of ACS - Medical Decision Making Patient received aerosols and Solu-Medrol. The patient continues to have significant wheezing and rhonchi. She remains with mild labored breathing. I do not see evidence of pneumonia on chest x-ray. We wanted to do a CTA but the patient is refusing any more needle sticks to get a better IV to do the CTA with. COVID test is currently pending. Because the patient is still significantly dyspneic plan will be admission. ED Disposition - Plan for ED Patient: Disposition: Acute Care Hospital [facility] Diagnosis: Acute exacerbation of chronic obstructive pulmonary disease (COPD) Referrals: Savita Cameron PA [Primary Care Provider] -
[2020-02-18 09:27] LABS: Absolute Lymphocyte Count 3.32 X10^3/uL (0.83-4.51); Absolute Neutrophil Count 3.6 X10^3/uL (2.0-7.7); Basophil# 0.03 X10^3/uL; Basophil% 0.4 % (0-1); Eosinophil# 0.52 X10^3/uL; Eosinophils% 6.1 % (0-5); Hematocrit 46.4 % (37-47); Hemoglobin 15.4 g/dL (12.0-15.0); Lymphocyte # 3.32 X10^3/ul (4.0); Lymphocyte % 38.9 % (19-41); Mean Corp Hgb Conc 33.2 g/dL (32-36); Mean Corpuscular Hgb 31.6 pg (27.0-32.0); Mean Corpuscular Volume 95.3 fL (81-99); Mean Platelet Vol. 9.5 fl (6.2-12.0); Monocyte# 1.02 X10^3/uL; Monocyte% 11.9 % (0-10); NRBC Flagged by Analyzer 0 % (0-5); Neutrophil # 3.64 X10^3/uL (2.7-7.7); Neutrophil % 42.6 % (47-70); Platelet Count 258 K/mm3 (150-450); RBC Distribution Width CV 12.4 % (11.6-14.6); RBC Distribution Width SD 43.1 fl (35.1-43.9); Red Blood Count 4.87 M/mm3 (4.2-5.4); White Blood Count 8.5 K/mm3 (4.4-11.0)
[2020-02-18] MEDS: MethylPREDNISolone 125 MG/2 ML Vial IV (09:36)
[2020-02-18] MEDS: Ipratropium/Albuterol Sulfate 3 ML AMPUL.NEB INHALATION ×3 (09:45→19:07)
[2020-02-18] MEDS: Albuterol 2.5 MG/3 ML VIAL.NEB. INHALATION ×4 (09:45→17:24)
[2020-02-18 09:49] LABS: Prothrombin Time (Protime)PT. 12.3 SECONDS (11.7-14.9)
[2020-02-18 09:50] LABS: ALB/GLOB Ratio 0.9 RATIO (0.9-2.4); AST(SGOT) 22 U/L (15-37); Alanine Aminotransfer ALT/SGPT 24 U/L (13-56); Albumin, Serum 3.7 g/dL (3.2-5.0); Alkaline Phosphatase 77 U/L (45-117); Anion Gap 5 (5-15); BUN 12 mg/dL (7-18); BUN/Creat Ratio 14.4 RATIO (10-20); Calcium,Total 9.3 mg/dL (8.5-10.1); Chloride 111 mmol/L (98-107); Creatinine, Serum 0.83 mg/dL (0.55-1.02); EST Glomerular Filtration Rate 76 mL/min (>60); Est Glom Filt Rate - Afr Amer 92 mL/min (>60); Estimated Creatinine Clearance 68.91 ml/min; Globulin 4.1 g/dL (2.2-4.2); Glucose 90 mg/dL (74-106); Partial Thromboplast Time 27.2 Seconds (24.1-36.2); Potassium 4.6 mmol/L (3.5-5.1); Protein, Total 7.8 g/dL (6.4-8.2); Sodium Level 139 mmol/L (136-145)
[2020-02-18 09:55] LABS: BNP,B-Type NATRIURETIC PEPTIDE 14.7 pg/mL (0-100)
[2020-02-18 09:56] LABS: Lactic Acid 1.5 mmol/L (0.4-1.9)
--- NOTE | 2020-02-18 10:15 | RAD_ITS ---
STUDY: X-RAY CHEST REASON FOR EXAM: Female, 54 years old. SOB TECHNIQUE: Single AP portable view of the chest. COMPARISON: Comparison is made with prior study dated 06/25/2019. FINDINGS: EKG electrodes are seen. Mild elevation of the right hemidiaphragm. The lungs are now clear. There is no demonstrated pleural abnormality. Normal size heart. Normal mediastinum and joann. Normal visualized pulmonary arteries. There is atherosclerotic calcification of the aortic arch with tortuosity. There are diffuse degenerative changes of the visualized thoracic spine. Normal visualized ribs, clavicles, and shoulders. There is no demonstrated abnormality of the visualized soft tissue structures of the upper abdomen. RAD/Chest 1 View (Portable) IMPRESSION: No acute abnormality is seen. Electronically Signed: Marcos James, at 11:03 EDT , Service support ,
--- NOTE | 2020-02-18 10:41 | ED.RN ---
ATTEMPTED TO OBTAIN LARGER IV IN AC FOR CTA. UNSUCCESSFUL, PT STATES THAT'S IT YOU AREN'T POKING ME AGAIN, MADE AWARE.
[2020-02-18] MEDS: BENZOCAINE/MENTHOL 1 LOZENGE MUCOUS MEM (14:14)
[2020-02-18] MEDS: 0.9% Saline Lock 10 ML Syringe IV ×2 (14:20→21:14)
[2020-02-18] MEDS: Azithromycin 250 MG Tablet 500 MG PO (14:20)
--- NOTE | 2020-02-18 18:24 | PCM.HP.STD ---
Problem List (1) Shortness of breath Status: Acute (2) Nonproductive cough Status: Acute History of Present Illness Date of Admission: 02/18/20 Chief Complaint: Nonproductive cough, shortness of breath The patient is a 54 year old F who was seen in the emergency room at [facility] with a chief complaint of progressive shortness of breath of the last 2 days along with a nonproductive cough. Patient denied any fevers or chills to this examiner, she denies having any family members to are sick but she has been around young children at home. Patient continues to smoke, she has a history of chronic obstructive pulmonary disease. Cup in the emergency room included a chest x-ray which showed no evidence of pneumonic infiltrate, patient's labs were overall unremarkable, her COVID-19 test was negative. Pulse ox was 92% on room air. Patient received aerosol treatments of bronchodilators in the emergency room as well as IV Solu-Medrol but continued to have severe wheezing and was dyspneic. Patient will be placed in observation status on [facility] 3 for acute exacerbation of chronic obstructive pulmonary disease, viral panel will be obtained, patient will be treated with IV Solu-Medrol and aggressive bronchodilator administration. Past Medical History Past Medical History (Chronic Problems): Chronic Problems Irritable bowel syndrome (IBS) (Chronic) Acute exacerbation of chronic obstructive pulmonary disease (COPD) (Chronic) Active tobacco use (Chronic) Chronic right hip pain (Chronic) Allergies No Known Allergies Allergy (Verified 02/18/20 09:13) Home Medications: Ambulatory Orders Medication Instructions Recorded Escitalopram Oxalate [Lexapro] 20 mg PO DAILY 02/18/20 Surgical History: cholecystectomy, - - Breast reduction and tonsillectomy and adenoidectomy, s/p bariatric surgery Psychiatric History: Anxiety, Depression 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 Denies: Anorexia, Chills, Fever, Night Sweats, Malaise, Weakness, Weight Change Eyes: Denies: Cataracts, Conjunctivae Inflammation, Double vision, Drainage HEENT: Denies: Difficulty Swallowing, Dysphasia, Ear Pain, Eye Pain, Hearing Changes, Nasal bleeding, Nasal Congestion, Post Nasal Drip Cardiovascular: Denies: Chest Pain, Claudication, Chest Pressure, Chest Tightness, Edema, Heaviness, Palpitations Respiratory: Reports: Cough, Shortness of Breath, Shortness of breath at rest, Shortness of breath upon exertion, Wheezing. Denies: Hemoptysis, Pleuritic Pain, Sputum production Gastrointestinal: Denies: Abdominal Pain, Constipation, Diarrhea, Hematemesis, Hematochezia, Nausea, Melena, Vomiting Genitourinary: Denies: Dysuria, Frequency, Hematuria, Hesitancy, Urgency Musculoskeletal: Denies: Back Pain, Foot Pain, Hand Pain, Joint Pain, Joint stiffness, Joint swelling, Joint Tenderness, Leg Pain Skin: Denies: Dryness, Pruritis, Rash Neurological: Denies: Blurred vision, Double vision, Change in Speech, Slurred speech, Difficulty swallowing, Focal weakness, Headaches, Numbness, Tingling Psychiatric: Denies: Anxiety, Depression, Homicidal Ideations, Suicidal Ideations Endocrine: Denies: Change in Body Habitus, Heat/ Cold Intolerance, Polydipsia, Polyuria Hematologic/ Lymphatic: Denies: Adenopathy, Anemia, Easy Bruising, Easy Bleeding, Petechiae, Purpura VTE Information - Inpt Only VTE Present on Admission: No VTE Mechan Device Prophylaxis: None VTE Pharm Prophylaxis ordered?: Yes Patient Problems: Active and Suspected Problems Shortness of breath (Acute) Nonproductive cough (Acute) - Physical Exam Vitals/I&O's: Vital Signs Temp Pulse Resp BP Pulse Ox 97.5 F L 112 H 24 H 152/75 H 94 02/18/20 17:17 02/18/20 17:24 02/18/20 17:24 02/18/20 17:17 02/18/20 17:17 Oxygen Delivery Method Room Air Weight: 101 kg Body Mass Index (BMI) 37.0 Intake and Output for Last 24 Hours 02/16/20 02/17/20 02/18/20 23:59 23:59 23:59 Intake Total 250 / 250 Balance 250 / 250 General: Alert, Oriented x3, Cooperative, No apparent distress, Well developed, Well nourished HEENT: Atraumatic, PERRLA, EOMI, Normocephalic Oral: Moist Mucosa Neck: Supple, No JVD, Negative Carotid Bruits, Trachea Midline, Thyroid Normal Size and Texture Lungs: No rhonchi, No rales, Diminished, Wheezes - Throughout all lung vitale bilaterally Cardiovascular: Regular rate, Regular Rhythm, Normal S1, Normal S2, No murmurs, PMI Normal, No rub noted, No Gallop Abdomen: Bowel Sounds Present, Soft, Non Tender, Non-Distended, No hernias noted Extremities: No clubbing, No cyanosis, No edema, Capillary Refill Less than 3 Seconds Skin: No rashes, No breakdown Musculoskeletal: No Tenderness to Palpation of Joints or Extremities Neurological: Cranial nerves II-XII grossly intact, Neuro grossly intact, Sensory exam intact to light touch and pain, Coordination normal Psych/Mental Status: Normal Affect, Appropriate, Alert and oriented to time, place, person, mood and affect Microbiology Past 72 Hours 02/18/20 14:15 Mucosa - Nasopharyngeal Respiratory Panel (PCR) - Preliminary Rhinovirus Laboratory Results 02/18/20 09:17: WBC 8.5, RBC 4.87, Hgb 15.4 H, Hct 46.4, MCV 95.3, MCH 31.6, MCHC 33.2, RDW Std Deviation 43.1, RDW Coeff of Jackie 12.4, Plt Count 258, MPV 9.5, Immature Gran % (Auto) 0.100, Neut % (Auto) 42.6 L, Lymph % (Auto) 38.9, [place] % (Auto) 11.9 H, Eos % (Auto) 6.1 H, Baso % (Auto) 0.4, Absolute Neuts (auto) 3.6, Absolute Lymphs (auto) 3.32, Nucleated RBC % 0 02/18/20 09:17: Lactic Acid 1.5 02/18/20 09:17: B-Natriuretic Peptide 14.7 02/18/20 09:17: Sodium 139, Potassium 4.6, Chloride 111 H, Carbon Dioxide 23.0, Anion Gap 5, BUN 12, Creatinine 0.83, Estim Creat Clear Calc 68.91, Est GFR (MDRD) Af Amer 92, Est GFR (MDRD) Non-Af 76, BUN/Creatinine Ratio 14.4, Glucose 90, Calcium 9.3, Total Bilirubin 0.40, AST 22, ALT 24, Alkaline Phosphatase 77, Troponin I < 0.015, Total Protein 7.8, Albumin 3.7, Globulin 4.1, Albumin/Globulin Ratio 0.9 02/18/20 09:17: PT 12.3, INR 1.0, APTT 27.2 02/18/20 09:40: COVID-19 (HUSEYIN) Not Detected Current Medications Albuterol Sulfate (Ventolin Aerosols) 2.5 mg INHALATION Q2H PRN PRN PRN Reason: Shortness of Breath/Wheezing Last Admin: 02/18/20 17:24 Dose: 2.5 mg Documented by: Albuterol/Ipratropium (Duoneb) 3 ml INHALATION Q4HWA.RT KAYLA Last Admin: 02/18/20 14:11 Dose: 3 ml Documented by: Azithromycin (Zithromax) 500 mg PO Q24 KAYLA Escitalopram Oxalate (Lexapro) 20 mg PO DAILY [facility] Heparin Sodium (Porcine) (Heparin Na) 5,000 unit SC Q12 KAYLA Ibuprofen (Motrin) 400 mg PO Q4H PRN PRN PRN Reason: Pain Score 1-10/Temp > 100.7 F Methylprednisolone (Solu-Medrol) 40 mg IV Q8 KAYLA Last Admin: 02/18/20 14:20 Dose: 40 mg Documented by: Sodium Chloride () 10 - 40 ml IV UD PRN PRN Reason: SALINE FLUSH Last Admin: 02/18/20 14:20 Dose: 10 ml Documented by: Throat Lozenges (Cepacol Sore Throat Lozenge) 1 lozenge MUCOUS MEM Q2H PRN PRN PRN Reason: SORE THROAT Last Admin: 02/18/20 14:14 Dose: 1 lozenge Documented by: Assessment/Plan All Active Problems Pneumonia (Resolved) Sepsis (Resolved) Dehydration (Resolved) Shortness of breath (Acute) Nonproductive cough (Acute) Acute bronchitis (Resolved) Acute hypoxemic respiratory failure (Resolved) #1 acute exacerbation of COPD-possibly secondary to acute viral tracheobronchitis-patient will be placed in observation status on [facility] 3, she will be given IV corticosteroids and aggressive aerosol treatments and she will be reevaluated tomorrow. Patient will have a respiratory panel taken. #2 noncompliance with medical regimen-patient continues to smoke at home #3 chronic depression/anxiety-patient is on Lexapro Patient is not requiring supplemental oxygen at this time. OBSV E&M: 26261 Initial observation care L3
[2020-02-18] MEDS: Heparin Injection (Vial) 5,000 UNIT/ML VIAL 5000 UNIT SC (21:12)
[2020-02-19 03:31] VITALS: BP 150/82; PULSE 91; RESP 18; TEMP 36.8; O2SAT 96
[2020-02-19] MEDS: 0.9% Saline Lock 10 ML Syringe IV (06:02)
[2020-02-19 07:07] VITALS: PULSE 79; RESP 18; O2SAT 93
[2020-02-19] MEDS: Ipratropium/Albuterol Sulfate 3 ML AMPUL.NEB INHALATION ×2 (07:07→11:11)
[2020-02-19 09:28] VITALS: BP 106/86; PULSE 101; RESP 20; TEMP 36.7; O2SAT 95
[2020-02-19] MEDS: Escitalopram Oxalate 20 MG Tablet PO (09:35)
[2020-02-19] MEDS: Azithromycin 250 MG Tablet 500 MG PO (09:36)
[2020-02-19 11:11] VITALS: PULSE 85; RESP 18
--- NOTE | 2020-02-19 11:11 | PCM.DC ---
- Discharge Diagnoses Current Active Problems: Current Active and Chronic Problems Acute exacerbation of chronic obstructive pulmonary disease (COPD) (Chronic) Shortness of breath (Acute) Nonproductive cough (Acute) You will use the following diet at home:: No restrictions Your food should be the consistency of: Regular Your liquids should be the consistency of: Regular/Thin Discharge Activity: Return to Normal Activity Weight Bearing Status: Full weight bearing Additional Instructions: CUT DOWN OR STOP SMOKING. YOU MAY USE NICOTINE GUM OR LOZENGES Allergies/Adverse Reactions: Allergies No Known Allergies Allergy (Verified 02/18/20 09:13) Medications to take at Discharge Albuterol IH (ProAir) [Proair Hfa] 2 puff INHALATION Q4H PRN PRN #1 inhaler 02/19/20 Duloxetine Hcl [Cymbalta] 120 mg PO DAILY #60 capsule. 02/19/20 Ipratropium/Albuterol Respimat [Combivent Respimat Inhal Slaughter] 2 puff INHALATION 4X/DAY #1 inhaler 02/19/20 Prednisone 20 mg PO UD #15 tab 02/19/20 The following prescriptions were given: Ipratropium/Albuterol Respimat [Combivent Respimat Inhal Slaughter] 2 puff INHALATION 4X/DAY #1 inhaler Transmission Status: Pending to [facility] Duloxetine Hcl [Cymbalta] 120 mg PO DAILY #60 capsule.dr Transmission Status: Pending to [facility] Prednisone 20 mg PO UD #15 tab Transmission Status: Pending to [facility] Albuterol IH (ProAir) [Proair Hfa] 2 puff INHALATION Q4H PRN PRN #1 inhaler PRN Reason: Dyspnea Transmission Status: Pending to [facility] Primary Care Physician: Savita Cameron, PA [Primary Care Provider] - Please follow up with your Primary Care Physician in: in 2 weeks Test Results: Test results from this visit will be discussed in further detail at your follow-up appointment, if applicable.
--- NOTE | 2020-02-19 11:45 | CASEMGMT ---
RN CM Assessment Note RN CM spoke with hospitalist and plan is to discharge patient. Attempted to see patient but she is not in room. medications reviewed for respiratory via [employer] formulary on line. Combivent is tier 2 with no prior auth required. hospitalist updated. Diagnosis: COPD exacerbation, Rhinovirus PCP: MORELIA Sue Specialists: Dr. Eller Insurance: MMO Preferred Pharmacy: [facility] Prescription Benefit: yes LNOK: SonLeonard Living Arrangements: one story home, no entry steps Patient DC Goals: Home DC Plan: Home, no needs per physician, nursing CM available for discharge planning coordination. Contact CM for any concerns/needs that may arise. Sera LEBLANC RN ACM
[2020-02-19 12:42] VITALS: BP 131/75; PULSE 100; RESP 22; TEMP 36.9; O2SAT 95
--- NOTE | 2020-02-19 16:48 | PCM.DC.SUM ---
Discharge Date and Diagnosis Date of Admission: 02/18/20 Date of Discharge: 02/19/20 - Primary Discharge Diagnosis Acute Problems: #1 acute exacerbation of COPD secondary to rhinovirus tracheobronchitis #2 acute rhinovirus tracheobronchitis #3 chronic depression - Secondary Discharge Diagnosis Chronic Problems: Chronic Problems Irritable bowel syndrome (IBS) (Chronic) Acute exacerbation of chronic obstructive pulmonary disease (COPD) (Chronic) Active tobacco use (Chronic) Chronic right hip pain (Chronic) Hospital Course and Treatment Operations: None Procedures: None Summary of Care Provided: The patient is a 54 year old F was seen in the emergency room at [facility] chief complaint progressive shortness of breath over 48 hours. Patient also complained of a dry cough, she denied any fevers or chills. Work-up in the emergency room included a chest x-ray which showed no evidence of acute infiltrates, labs were unremarkable, COVID test was negative. Patient was given aerosol treatments in the emergency room and IV corticosteroids but remained short of breath, she was placed into observation status on MedSurg 3, given IV corticosteroids and aggressive aerosol treatments, she had a respiratory panel that was positive for rhinovirus. On 02/19/2020, patient was seen and examined: On examination she appeared her stated age, she does not appear to be in any distress. Vital signs as documented. Skin warm and dry and without overt rashes. Neck without JVD, thyroid appears normal, trachea is midline, neck is supple. Lungs-scattered expiratory wheezes were noted bilaterally, normal air movement was noted. Heart exam notable for regular rhythm, normal sounds and absence of murmurs, rubs or gallops. Abdomen unremarkable and without evidence of organomegaly, masses, or abdominal aortic enlargement, bowel sounds are present in all 4 quadrants, no abdominal tenderness was noted. Extremities nonedematous, no cyanosis was noted, no clubbing was noted. Neuro: Cranial nerves II through XII are grossly intact, no focal motor deficits were noted, sensation to light touch and pinprick is intact, motor exam 5/5 throughout. Psych: Patient is alert and oriented x3, she does not appear anxious or depressed, she does not appear agitated. On 02/19/2020, patient appears stable for discharge, I talked at length with her about personal problems that she is experiencing at home with her son and suggested that we change her antidepressant to Cymbalta to see if this helps, she will stop her Lexapro. Patient was also placed on a Combivent inhaler and she was urged to stop smoking. Patient is also been urged to seek counseling regarding her personal problems with her son. - Physical Exam Vitals/I&O's: Vital Signs Temp Pulse Resp BP Pulse Ox 98.5 F 100 22 H 131/75 H 95 02/19/20 12:42 02/19/20 12:42 02/19/20 12:42 02/19/20 12:42 02/19/20 12:42 Oxygen Delivery Method Room Air Weight: 101 kg Body Mass Index (BMI) 37.0 Intake and Output for Last 24 Hours 02/17/20 02/18/20 02/19/20 23:59 23:59 23:59 Intake Total 250 / 450 900 / 900 Balance 250 / 450 900 / 900 Microbiology Past 72 Hours 02/18/20 14:15 Mucosa - Nasopharyngeal Respiratory Panel (PCR) - Final Rhinovirus Discharge Activity: Return to Normal Activity Weight Bearing Status: Full weight bearing Home Medications: Medications to take at Discharge Albuterol IH (ProAir) [Proair Hfa] 2 puff INHALATION Q4H PRN PRN #1 inhaler 02/19/20 Duloxetine Hcl [Cymbalta] 120 mg PO DAILY #60 capsule. 02/19/20 Ipratropium/Albuterol Respimat [Combivent Respimat Inhal Jackson] 2 puff INHALATION 4X/DAY #1 inhaler 02/19/20 Prednisone 20 mg PO UD #15 tab 02/19/20 Following Prescriptions Were Given to Patient: Ipratropium/Albuterol Respimat [Combivent Respimat Inhal Jackson] 2 puff INHALATION 4X/DAY #1 inhaler Transmission Status: Received by [facility] Duloxetine Hcl [Cymbalta] 120 mg PO DAILY #60 capsule. Transmission Status: Received by [facility] Prednisone 20 mg PO UD #15 tab Transmission Status: Received by [facility] Albuterol IH (ProAir) [Proair Hfa] 2 puff INHALATION Q4H PRN PRN #1 inhaler PRN Reason: Dyspnea Transmission Status: Received by [facility] Primary Care Physician: Savita Cameron PA [Primary Care Provider] - Please follow up with your Primary Care Physician in: in 2 weeks Disposition: Home Minutes spent on discharge:: 30 Patient Condition:: Stable Medical Necessity - Tobacco Use Smoking Status: Current every day smoker Tobacco Use: Cigarettes Meaningful Use Info Meaningful Use Diagnoses (Choose all that apply): None applicable OBSV E&M: 00038 Observation care discharge
== END 2020-02-19 12:54 | disposition home or self-care (01) ==
LOC: ED 11:04 → MS3 13:30
PROVIDERS: Admitting Provider Internal Medicine; Emergency Provider Emergency Medicine; PCP Physician Assistant; Visit Provider Internal Medicine
DX: J44.1 Chronic obstructive pulmonary disease with (acute) exacerbation (principal); F32.9 Major depressive disorder, single episode, unspecified; J20.6 Acute bronchitis due to rhinovirus; K58.9 Irritable bowel syndrome, unspecified; F17.210 Nicotine dependence, cigarettes, uncomplicated; F41.9 Anxiety disorder, unspecified; Z91.14 Patient's other noncompliance with medication regimen
CPT/HCPCS: 71045; 80053; 83605; 83880; 84484; 85025; 85610; 85730; 87040; 87633; 87635; 93005; 94640; 96372; 96374; 96376; 99218; 99251; 99285; A4216; G0378; G0463; U0003

== ENCOUNTER 2020-07-15 09:57 | Day surgery (SDC) | payer OTHER, SELFPAY ==
[2020-02-18 13:49] VITALS: BMI 37.0
[2020-07-14 09:24] LABS: Hematocrit 42.2 % (37-47); Mean Corp Hgb Conc 33.2 g/dL (32-36); Mean Corpuscular Hgb 31.8 pg (27.0-32.0); Mean Corpuscular Volume 95.9 fL (81-99); Mean Platelet Vol. 9.2 fl (6.2-12.0); Platelet Count 252 K/mm3 (150-450); RBC Distribution Width CV 12.7 % (11.6-14.6); White Blood Count 9.2 K/mm3 (4.4-11.0)
[2020-07-14 09:56] LABS: AST(SGOT) 13 U/L (15-37); Alanine Aminotransfer ALT/SGPT 23 U/L (13-56); Albumin, Serum 3.7 g/dL (3.2-5.0); Alkaline Phosphatase 73 U/L (45-117); Anion Gap 6 (5-15); BUN 12 mg/dL (7-18); BUN/Creat Ratio 17.3 RATIO (10-20); Calcium,Total 8.9 mg/dL (8.5-10.1); Chloride 111 mmol/L (98-107); Creatinine, Serum 0.69 mg/dL (0.55-1.02); EST Glomerular Filtration Rate 93 mL/min (>60); Est Glom Filt Rate - Afr Amer 113 mL/min (>60); Globulin 3.7 g/dL (2.2-4.2); Glucose 77 mg/dL (74-106); Potassium 3.9 mmol/L (3.5-5.1); Protein, Total 7.4 g/dL (6.4-8.2); Sodium Level 140 mmol/L (136-145)
[2020-07-15] VITALS (9 sets, daily range): BP systolic 108–134; BP diastolic 69–83; PULSE 76–92; RESP 16; TEMP 36.5–37.2; O2SAT 92–97; BMI 37.0
--- NOTE | 2020-07-15 | IMM_PTH ---
PATIENT: JEANIE HOBSON [place] [facility] [id number] AGE/SX: 54/F ROOM: RE07/15/[address]: Dr. Francisco Lobo MD : 1965 BED: DIS: 07/15/2020 SPEC #: [id number] RECD: 07/20/20 12:50 STATUS: MARTINE REQ #: [id number] SONG: 07/15/20 00:[address]: Francisco Lobo DEPT: IMMUNOHISTOCHEMISTRY RECD BY: Gabbi Drake ENTERED: 07/20/20 12:51 SP TYPE: IMMUNO OTHR DR: MORELIA Naranjo Tissues: B - Uterine cervix, NOS C - Skin of anus Procedures: p16 (initial) KI-67 (add) PHYSICIAN & INSTITUTION [place] [id number] SPECIMEN INFORMATION: Tissue Source: B - Cervical cone biopsy, C - Anal skin tag Clinical Info: Abnormal pap Specimen Number: [id number] B1 & C CPT code: 66070 x2, 79453 x2 METHODOLOGY: Deparaffinized sections of prefer/formalin-fixed tissue or PAP/DQ stained slides are incubated with monoclonal/polyclonal antibodies/oligonucleotide probes. Localization is made via biotin free immunoperoxidase method. Appropriate controls are performed and reacted as expected. Results on target cell population are indicated in the following table: RESULTS: ANTIBODY / CLONE RESULT Block B1 P16 (E6H4) positive, focal block staining Ki-67 (30-9) positive, high Block C P16 (E6H4) positive, block staining Ki-67 (30-9) positive, moderate These tests were developed and their performance characteristics determined by [facility]. They may not have been cleared or approved by the U.S. Food and Drug Administration. The FDA has determined that such clearance or approval is not necessary. The above immunohistochemical/dualISH markers are ordered and reviewed by the Pathologist. INTERPRETATION: B. Cervix, cone biopsy: Focal severe squamous dysplasia. C. Anal skin tag, biopsy: Invasive well differentiated squamous cell carcinoma. SJ:alfie 07/21/2020
[2020-07-15] MEDS: Lactated Ringers 1,000 ML 100 ML IV (10:40)
--- NOTE | 2020-07-15 11:50 | CER_PTH ---
PATIENT: JEANIE HOBS[place] [facility] [place][id number] AGE/SX: 54/F ROOM: RE07/15/[address]: Dr. Francisco Lobo MD : 1965 BED: DIS: 07/15/2020 SPEC #: [id number] RECD: 07/15/20 13:53 STATUS: MARTINE REQ #: [id number] SONG: 07/15/20 11:[address]: Francisco Lobo DEPT: SURGICAL PATHOLOGY RECD BY: Sammie Rendon ENTERED: 07/16/20 08:23 SP TYPE: CERV OTHR DR: MORELIA Narnajo Tissues: A - Endocervical B - UTERINE CERVIX LEEP C - Skin of anus Procedures: Surgery Specimen Level IV Surgery Specimen Level V HEADER OPERATION: Cold knife conization / excision anal skin tag PRE-OP DIAGNOSIS: Abnormal pap TISSUE SUBMITTED: A - Endocervical curettings, B - Cervical cone biopsy, C - Anal skin tag MICROSCOPIC DIAGNOSIS A. Endocervical curettings: Fragments of benign endocervical epithelium and mucous, negative for dysplasia. B. Cervix, cone biopsy: Focal severe squamous dysplasia (HGSIL and MARQUITA III). Resection margins are free of dysplastic changes. See comment. C. Anal skin tag, biopsy: A piece of condyloma with focal area of invasive well differentiated squamous cell carcinoma. See comment. SJ:rg 07/19/2020 COMMENT B. Immunohistochemistry ([id number]) for surrogate HPV marker (p16) will be performed and the results will be reported separately. C. Immunohistochemistry ([id number]) for surrogate HPV marker (p16) will be performed and the results will be reported separately. Invasive carcinoma is present at the resection margin of the specimen and measures 0.4 cm in greatest dimension. Overlying squamous mucosa shows mild to moderate dysplastic changes. Clinical correlation and appropriate follow up are necessary. Results are reported to Dr. Singh's office on 07/21/20. MICROSCOPIC DESCRIPTION Slides are reviewed. GROSS DESCRIPTION A - Received in fixative is one container labeled with the patient's name and designated endocervical curettings. The specimen consists of scant fragments of partida soft tissue measuring in aggregate 0.2 x 0.1 x <0.1 cm. The specimen is totally submitted in one cassette. B - Received in fixative is one container labeled with the patient's name and designated cervical cone biopsy. The specimen consists of three variable sized pieces of partida indurated tissue measuring 2.5 x 1.5 x 0.5 cm and 1.5 x 0.7 x 0.2 cm and 1 x 0.5 x 0.2 cm. The intermediate sized piece is semicircular in shape. No mucosal lesion is identified. The nonmucosal surface is inked black. The entire specimen is submitted in four cassettes as follows: 1 & 2 - largest piece, 3 - intermediate sized piece, 4 - smallest piece. C - Received in fixative is one container labeled with the patient's name and designated anal skin tag. The specimen consists of a piece of skin measuring 1.5 x 0.8 x 0.5 cm. The specimen is inked, serially sectioned and submitted entirely in one cassette. / SJ:rg 07/16/20 TC:0 CPT: 04958, 53478 x2 ADDENDUM ADDENDUM ADDENDUM ADDENDUM ADDENDUM ADDENDUM ADDENDUM ADDENDUM ADDENDUM ADDENDUM ADDENDUM ADDENDUM ADDENDUM ADDENDUM ADDENDUM ADDENDUM ADDENDUM 10/01/2020 10:49 ADDENDUM 10/01/2020 10:49 ADDENDUM 10/01/2020 10:49 ADDENDUM 10/01/2020 10:49 ADDENDUM 10/01/2020 10:49 This addendum is added to incorporate an outside pathology consultation report. The case was examined at [facility] (#[id number]) and the following diagnosis was rendered. A. Endocervix, curetting: Limited sample of benign endocervical glandular epithelium. B. Cervix, cone biopsy: High-grade squamous intraepithelial lesion (HSIL, MARQUITA 3). HSIL is focally identified at an undesignated inked resection margin, favor endocervical margin. C. Anal skin tag, biopsy: Invasive squamous cell carcinoma. High-grade squamous intraepithelial lesion (HSIL, AIN 3). Please see complete above mentioned consultation report in EMR
--- NOTE | 2020-07-15 11:55 | PCM.HP.STD ---
History of Present Illness Date of Admission: 07/15/20 Chief Complaint: Pre-op The patient is a 54 year old F who presents for surgery. Past Medical History Past Medical History (Chronic Problems): Chronic Problems Irritable bowel syndrome (IBS) (Chronic) Acute exacerbation of chronic obstructive pulmonary disease (COPD) (Chronic) Active tobacco use (Chronic) Chronic right hip pain (Chronic) Allergies No Known Allergies Allergy (Verified 07/15/20 10:12) Home Medications: Ambulatory Orders Medication Instructions Recorded Albuterol IH (ProAir) [Proair Hfa] 2 puff INHALATION Q4H PRN PRN #1 02/19/20 inhaler Surgical History: cholecystectomy, - - Breast reduction and tonsillectomy and adenoidectomy, s/p bariatric surgery Psychiatric History: Anxiety, Depression 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 Smoking Status: Current every day smoker Tobacco Use: Cigarettes - *Family History Paternal History Items: Unknown Maternal History Items: Heart Disease VTE Information - Inpt Only VTE Present on Admission: No - Physical Exam Vitals/I&O's: Vital Signs Temp Pulse Resp BP Pulse Ox 98.9 F 77 16 134/79 H 96 07/15/20 10:31 07/15/20 10:31 07/15/20 10:31 07/15/20 10:31 07/15/20 10:31 Oxygen Delivery Method Room Air Weight: 229 lb 8.019 oz Body Mass Index (BMI) 37.0 General: Alert, Oriented x3 Lungs: Clear to auscultation, Normal air movement Cardiovascular: Regular rate, Regular Rhythm Abdomen: Soft, Non Tender, Non-Distended Extremities: No Calf Tenderness Skin: No rashes Musculoskeletal: No Tenderness to Palpation of Joints or Extremities Neurological: Cranial nerves II-XII grossly intact Psych/Mental Status: Normal Affect Microbiology Past 72 Hours 07/14/20 08:50 Interface Orders SARS-CoV-2 Antigen (Rapid) - Final Current Medications Lactated Ringer's () 1,000 mls @ 100 mls/hr IV .Q10H KAYLA Last Admin: 07/15/20 10:40 Dose: 100 mls/hr Documented by: Assessment/Plan All Active Problems Pneumonia (Resolved) Sepsis (Resolved) Dehydration (Resolved) Shortness of breath (Acute) Nonproductive cough (Acute) Acute bronchitis (Resolved) Acute hypoxemic respiratory failure (Resolved) 54yo female with ASC-H pap with positive HRHPV and anal skin tag Discussed R/B/A of treatment options in light of her unsatisfactory colposcopy. Patient wishes to proceed with surgical excisional procedure via cone knife conization of cervix and endocervial curettage. Also she wishes to proceed with excision of skin tag (patient is s/p consult with ). Informed consent signed.
[2020-07-15] MEDS: Lidocaine 1% /Epi 1:100 (20ml) 20 ML Vial (12:14)
[2020-07-15] MEDS: FERRIC SUBSULFATE 8 GM SOLN (12:14)
[2020-07-15] MEDS: Iodine/Potassium Iodide 14ML Bottle 1 DRP TOPICAL (12:14)
--- NOTE | 2020-07-15 13:04 | DCINST_ITS ---
Discharge Diet: No Restrictions Discharge Activity: May Drive - after 24 hours, May Shower May resume sexual activity in: 4-6 weeks Weight Bearing Status: Weight bearing as tolerated Call your doctor if you observe: Fever of 101 or Higher, Coldness, Increased Pa in, Numbness or Tingling, Change in Color, Inability to urinate, Inability to have a bowel movement, Using more than one pad per hour, Shortness of breath, Fainting spells, Chest pain, Increased palpitations (irregular heartbeat), Uncontrolled pain Allergies/Adverse Reactions: Allergies No Known Allergies Allergy (Verified 07/15/20 10:12) Medications to take at Discharge Albuterol IH (ProAir) [Proair Hfa] 2 puff INHALATION Q4H PRN PRN #1 inhaler 02/19/20 Primary Care Physician: Savita Cameron, PA [Primary Care Provider] - Test Results: Test results from this visit will be discussed in further detail at your follow- up appointment, if applicable.
--- NOTE | 2020-07-15 13:05 | OP.PCM_ITS ---
Report of Operation Date of Procedure: 07/15/20 Pre-Operative Diagnosis: (1) ASC-H pap with HRHPV positive and unsatisfactory pap. (2) Anal skin tag Post-Operative Diagnosis: Same Surgery/Procedure Performed:: Cold knife conization of cervix with endocervical curettage and excision of anal skin tag Description of Surgical Findings:: (1) Cervix with non staining area after applying lugols c/w cervical dysplasia (2) 2x3cm anal skin tag Type of Anesthesia:: Local MAC Specimen's removed: (1) Cervical cone biopsy. (2) Endocervical curettage. (3) Anal skin tag Estimated Blood Loss (mL): 50ml Fluids Replaced: 800ml Description of Procedure: Start time: 12:14 Stop time: 12:40 Patient taken to OR when MAC anesthesia was placed and found to be adequate. She was placed in the dorsal lithotomy position, prepped & draped. Cervix was grasped with a tenaculum. Paracervical block given with 10ml lidocaine with epi nephrine. Stay sutures placed using vicryl at 3 & 9 o'clock. Cervical cone specimen excised using scalpel & then beck scissors. ECC performed. Excellent hemostasis obtained using rollerball cautery, monsels & fibrillar. All instruments removed from vaginal cavity and vaginal sweep performed. Attention turned to anal skin tag which was grasped with an cait. It was suture ligated with chromic and then excised with a scalpel. After minimal bovie cautery to the base excellent hemostasis was obtained, Patient tolerated the procedures well. - Complications None - Admit VTE Documentation VTE Present on Admission: No
== END 2020-07-15 15:25 | disposition home or self-care (01) ==
LOC: SDC 09:57 → AC 09:58
PROVIDERS: PCP Physician Assistant; Referring Provider Obstetrics & Gynecology; Visit Provider Obstetrics & Gynecology
PROC: 0UBC7ZZ Excision of Cervix, Via Natural or Artificial Opening (ICD-10-PCS; CPT 57520; principal; 2020-07-15 11:35)
DX: K64.4 Residual hemorrhoidal skin tags (principal); R87.611 Atypical squamous cells cannot exclude high grade squamous intraepithelial lesion on cytologic smear of cervix (ASC-H); K58.9 Irritable bowel syndrome, unspecified; J44.1 Chronic obstructive pulmonary disease with (acute) exacerbation; M25.551 Pain in right hip; G89.29 Other chronic pain; F17.210 Nicotine dependence, cigarettes, uncomplicated; Z82.49 Family history of ischemic heart disease and other diseases of the circulatory system; Z90.49 Acquired absence of other specified parts of digestive tract; Z98.84 Bariatric surgery status
CPT/HCPCS: 46220; 57520; 36415; 80053; 85027; 86850; 86900; 86901; 87426; 88305; 88307; 88341; 88342; C9803; J7120; J2405

== ENCOUNTER → 2020-08-10 16:07 | Outpatient (CLI) | payer OTHER, SELFPAY ==
[2020-07-15 10:31] VITALS: BMI 37.0
--- NOTE | 2020-08-10 16:45 | MRI_ITS ---
MR Pelvis WO/W Contrast 08/10/2020 4:34 PM COMPARISON: None CLINICAL HISTORY: Initial staging anal CA TECHNIQUE: Multiplanar T1 and T2 weighted, diffusion and dynamic post-gadolinium images were obtained through the pelvis. FINDINGS: Gastrointestinal: Scattered colonic diverticula. No abnormal wall thickening or enhancement of the anus or rectum seen. Bladder: Unremarkable Reproductive organs: Oval 9 mm cystic lesion seen just lateral to the external urethral meatus (image 22, series 9). Lymphadenopathy: Absent Ascites: Absent Bones: No suspicious lesions MRI/Pelvis W/WO Contrast IMPRESSION: Suboptimal examination due to heavy artifact. Despite limitations: No abnormal wall thickening or enhancement of the anus is seen. No suspicious lymphadenopathy. 9 mm periurethral ([place]) duct cyst. Diverticulosis. Electronically Signed: Vinny Sandoval MD at 18:42 EDT Tel , Service support ,
== END ==
PROVIDERS: PCP Physician Assistant; Referring Provider Radiology Radiation Oncology; Visit Provider Radiology Radiation Oncology
DX: C21.0 Malignant neoplasm of anus, unspecified (principal)
CPT/HCPCS: 72197; A9575

== ENCOUNTER → 2022-03-06 | Outpatient (CLI) | payer OTHER, SELFPAY ==
[2022-03-06 11:33] LABS: Erythrocyte Sedimentation Rate 19 mm/hr (0-30)
[2022-03-06 11:34] LABS: Absolute Lymphocyte Count 3.38 X10^3/uL (0.83-4.51); Absolute Neutrophil Count 4.2 X10^3/uL (2.0-7.7); Basophil# 0.04 X10^3/uL; Basophil% 0.5 % (0-1); Eosinophil# 0.23 X10^3/uL; Eosinophils% 2.7 % (0-5); Hematocrit 44.1 % (37-47); Hemoglobin 14.6 g/dL (12.0-15.0); Lymphocyte # 3.38 X10^3/ul (0.83-4.51); Lymphocyte % 39.3 % (19-41); Mean Corp Hgb Conc 33.1 g/dL (32-36); Mean Corpuscular Hgb 31.7 pg (27.0-32.0); Mean Corpuscular Volume 95.9 fL (81-99); Mean Platelet Vol. 10.1 fl (6.2-12.0); Monocyte# 0.76 X10^3/uL; Monocyte% 8.8 % (0-10); NRBC Flagged by Analyzer 0 % (0-5); Neutrophil # 4.18 X10^3/uL (2.7-7.7); Neutrophil % 48.5 % (47-70); Platelet Count 273 K/mm3 (150-450); RBC Distribution Width CV 12.9 % (11.6-14.6); RBC Distribution Width SD 45.6 fl (35.1-43.9); White Blood Count 8.6 K/mm3 (4.4-11.0)
[2022-03-06 12:04] LABS: CRP 4.89 mg/L (0.0-3.0); LDH 198 U/L (84-246)
[2022-03-07 14:29] LABS: Anti-Centromere B Ab <0.2 AI (0.0-0.9); Anti-Chromatin <0.2 AI (0.0-0.9); Anti-Jo <0.2 AI (0.0-0.9); Anti-Scleroderma-70 AB <0.2 AI (0.0-0.9); RNP Ab 0.2 AI (0.0-0.9); SJOGREN'S Anti-SS-A test < 0.2 AI (0.0-0.9); SJOGREN'S Anti-SS-B test < 0.2 AI (0.0-0.9); Smith Ab <0.2 AI (0.0-0.9)
[2022-03-07 15:08] LABS: Endomysial Antibody IgA Negative (Negative)
[2022-03-07 16:11] LABS: Anti-dsDNA Ab 1 IU/mL (0-9)
[2022-03-07 18:04] LABS: Immunoglobulin A 261 mg/dL (87-352); t-Transglutaminase IgA <2 U/mL (0-3)
[2022-03-15 00:07] LABS: Albumin 3.7 g/dL (2.9-4.4); Alpha-1-Globulins 0.2 g/dL (0.0-0.4); Alpha-2-Globulins 0.8 g/dL (0.4-1.0); Cytoplasmic Ab (C-ANCA) <1:20 titer (Neg:<1:20); Gamma Globulin 1.1 g/dL (0.4-1.8); Immunoglobulin A 267 mg/dL (87-352); Immunoglobulin G 1002 mg/dL (586-1602); Immunoglobulin M 167 mg/dL (26-217)
[2022-03-15 09:50] LABS: Immunoglobulin E 29 IU/mL (6-495); Perinuclear Ab (P-ANCA) <1:20 titer (Neg:<1:20)
== END | disposition home or self-care (01) ==
LOC: LAB 10:26
PROVIDERS: PCP Internal Medicine; Referring Provider Internal Medicine Gastroenterology; Visit Provider Internal Medicine Gastroenterology
DX: C21.0 Malignant neoplasm of anus, unspecified (principal); R19.7 Diarrhea, unspecified
CPT/HCPCS: 36415; 82784; 82785; 83516; 83615; 84165; 85025; 85652; 86140; 86225; 86235; 86255; 86256; 86334

== ENCOUNTER → 2022-09-20 | Outpatient (CLI) | payer OTHER, SELFPAY ==
--- NOTE | 2022-07-17 08:00 | SUR.PREOP ---
pt reported she only took dulcolax tabs for prep. dr. avitia spoke with pt and told her she may not be cleaned out. pt said she did what office told her. pt agreed to be rescheduled. she will call office to be rescheduled. she did not want to be rescheduled for tomorrow.
== END | disposition home or self-care (01) ==
LOC: PAT 10-18 17:31
PROVIDERS: PCP Internal Medicine; Referring Provider Internal Medicine; Visit Provider Internal Medicine Gastroenterology
DX: Z01.818 Encounter for other preprocedural examination (principal)
CPT/HCPCS: J7120; J2405

== ENCOUNTER 2022-10-16 14:51 | Emergency (ER) | payer OTHER, SELFPAY ==
[2022-10-16 14:53] VITALS: BP 171/112; PULSE 126; RESP 24; TEMP 36.6; O2SAT 98
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
[2022-10-16] MEDS: Aspirin 81 MG TAB.CHEW 324 MG PO (15:16)
[2022-10-16] MEDS: 0.9% Normal Saline 1,000 ML 999 ML IV (15:25)
[2022-10-16 15:26] VITALS: BP 150/77; PULSE 119; RESP 10; O2SAT 97; BMI 40.6
[2022-10-16 15:27] LABS: Absolute Lymphocyte Count 4.07 X10^3/uL (0.83-4.51); Absolute Neutrophil Count 5.1 X10^3/uL (2.0-7.7); Basophil# 0.03 X10^3/uL; Basophil% 0.3 % (0-1); Eosinophil# 0.22 X10^3/uL; Eosinophils% 2.2 % (0-5); Hematocrit 42.9 % (37-47); Lymphocyte # 4.07 X10^3/ul (0.83-4.51); Lymphocyte % 40.1 % (19-41); Mean Corpuscular Hgb 32.1 pg (27.0-32.0); Mean Corpuscular Volume 91.9 fL (81-99); Mean Platelet Vol. 9.8 fl (6.2-12.0); Monocyte# 0.69 X10^3/uL; Monocyte% 6.8 % (0-10); NRBC Flagged by Analyzer 0 % (0-5); Neutrophil # 5.11 X10^3/uL (2.7-7.7); Neutrophil % 50.3 % (47-70); Platelet Count 277 K/mm3 (150-450); RBC Distribution Width CV 12.4 % (11.6-14.6); RBC Distribution Width SD 41.5 fl (35.1-43.9); Red Blood Count 4.67 M/mm3 (4.2-5.4); White Blood Count 10.2 K/mm3 (4.4-11.0)
--- NOTE | 2022-10-16 15:35 | RAD_ITS ---
INDICATION: chest pain EXAMINATION/TECHNIQUE: X-RAY - XR Chest 1 View COMPARISON: 02/18/2020. FINDINGS: The lungs are clear. Tortuous and calcified thoracic aorta. The heart is not enlarged. No pleural effusion or pneumothorax. Degenerative changes of the thoracic spine. RAD/Chest 1 View (Portable) IMPRESSION: No acute radiographic abnormalities. Electronically Signed: Vinny Sandoval MD at 16:47 EDT ,
[2022-10-16 15:44] LABS: D-Dimer Quantitative (DVT/PE) 0.43 FEU/ug/m (0.27-0.49)
[2022-10-16 15:53] LABS: BNP,B-Type NATRIURETIC PEPTIDE 10.8 pg/mL (0-100)
[2022-10-16 15:57] LABS: Anion Gap 11 (5-15); BUN 13 mg/dL (7-18); Chloride 107 mmol/L (98-107); Creatinine, Serum 0.81 mg/dL (0.55-1.02); EST Glomerular Filtration Rate 77 mL/min (>60); Est Glom Filt Rate - Afr Amer 93 mL/min (>60); Estimated Creatinine Clearance 71.74 ml/min; Glucose 106 mg/dL (74-106); Potassium 3.6 mmol/L (3.5-5.1); Sodium Level 140 mmol/L (136-145); Troponin-I HS (w/2H Reflex) 7 pg/mL (3.0-54.0)
[2022-10-16 16:00] VITALS: BP 153/95; PULSE 104; RESP 13; O2SAT 95
[2022-10-16 17:13] VITALS: BP 146/95; PULSE 92; RESP 17; O2SAT 96
[2022-10-16 17:24] LABS: Reflex Troponin-HS? (from REC) Y
[2022-10-16 17:51] LABS: Troponin-I HS 9 pg/mL (3.0-54.0)
[2022-10-16 19:17] VITALS: RESP 22; O2SAT 98
== END 2022-10-16 19:30 | disposition home or self-care (01) ==
PROVIDERS: Emergency Provider Student in an Organized Health Care Education/Training Program; PCP Internal Medicine; Visit Provider Student in an Organized Health Care Education/Training Program
DX: R07.9 Chest pain, unspecified (principal); F17.210 Nicotine dependence, cigarettes, uncomplicated; R06.00 Dyspnea, unspecified; R42 Dizziness and giddiness; Z90.49 Acquired absence of other specified parts of digestive tract
CPT/HCPCS: 71045; 80048; 83880; 84484; 85025; 85379; 93005; 99285; J7030; A4216

== ENCOUNTER 2023-03-12 08:29 | Day surgery (SDC) | payer OTHER, SELFPAY ==
[2023-03-12] VITALS (10 sets, daily range): BP systolic 93–137; BP diastolic 49–93; PULSE 57–111; RESP 18; TEMP 36.2–36.9; O2SAT 95–98; BMI 38.4
[2023-03-12] MEDS: Lactated Ringers 1,000 ML 15 ML IV (08:43)
--- NOTE | 2023-03-12 09:09 | PCM.HP.BLA ---
History and Physical Date of Admission: 03/12/23 56 F who presents to the office today for Initial consult. Jenn established with this clinic 03.06.22 with referral from PCP. She has a history of anal cancer. Underwent surgery for anal cancer . [facility]; anterior fissure with some granular-like tissue noted that was excised back to normal tissue. Pathology left perianal condyloma and severe squamous dysplasia/squamous carcinoma in situ. Negative for invasive carcinoma. Dysplasia is noted at inked peripheral margins. Reviewed and confirmed 09.27.20. Currently having difficulty with explosive, watery diarrhea alternating with very thin caliber stool and a normal BM 1-2 times a month. Will periodically have blood in her stools. Prior to this she was having difficulty with diarrhea, with preceding abdominal pain/cramping without blood or mucus. PMH cervical severe squamous dysplasia early 2020, HPV +, cholecystectomy, gastric bypass 1994. [facility] Dr. Zamora oncology following; she did not start chemotherapy as Dr. Zamora did not feel it was warranted. Pelvic MRI 08.10.20 noting scattered colonic diverticulosis; 9mm cystic lesion. Colonoscopy 12.20.21 at [facility] with specimens collected. Pathology unavailable. Vaginal exam 12.20.21 with specimens negative for dysplasia. HPV + . CT abd/pel 02.06.22 [facility] for abdominal pain s/p gastric bypass; sigmoid diverticulosis; adenomatous hyperplasia. Exam Const General: cooperative and comfortable Nutritional Appearance: average body habitus and well nourished [facility] Head: normal to inspection Ears: hearing grossly normal bilaterally Nose: external nose normal Face and sinus: normal facial exam Mouth: oral mucosae normal Throat: posterior oropharynx normal Eyes General: appearance normal, both eyes and all related structures Neck Neck: normal visual inspection Chest Chest palpation & inspection: normal inspection of the chest and normal palpation of entire chest wall Resp Effort & Inspection: normal respiratory effort Auscultation: Bilateral: Clear to Auscultation Cardio Palpation: normal PMI Rate: regular rate Rhythm: regular rhythm GI Inspection: normal to inspection Auscultation: normal bowel sounds Percussion: normal to percussion Palpation: no hepatosplenomegaly Skin General: no rashes or lesions noted Neuro General: patient alert Extrem General: normal to inspection Psych Affect: normal affect Quality Reporting Tobacco Screening ([facility] 138) Smoking Status: Current every day smoker Assessment and Plan Assessment and Plan (1) Anal cancer: Status: Chronic Comment: s/p surgery 2020. No chemotherapy Plan: She will undergo a endoscopic evaluation as patient says she has not had a colonoscopy in approximately 7 years. She did have a endoscopy or flexible sigmoidoscopy. We will evaluate her margins. We will also evaluate the rest of her colon for any underlying masses, ulcers or lesions. (2) Diarrhea: Status: Acute Plan: Diagnosis for her diarrhea does include IBS with diarrhea, inflammatory bowel disease, microscopic colitis, lymphocytic colitis, collagenous colitis. She will have an upper GI study with evaluation of her upper GI tract along with biochemical analysis and stool analysis. Orders: I have examined the patient and the H&P has been reviewed. There are no clinical changes since date of exam.
--- NOTE | 2023-03-12 09:15 | GASB_PTH ---
PATIENT: JEANIE HOBSON LOC: EN U#:[id number] AGE/SX: 57/F ROOM: RE03/12/[address]: Dr. Iggy Clay DO : 1965 BED: DIS: 03/12/2023 SPEC #: [id number] RECD: 03/12/23 11:11 STATUS: MARTINE JUDSON #: [id number] SONG: 03/12/23 09:[address]: Iggy Clay DEPT: SURGICAL PATHOLOGY RECD BY: Dipak Yancey ENTERED: 03/12/23 11:49 SP TYPE: Gastric Bx OTHR DR: Dr. Leslie Townsend MD Tissues: A - Duodenum, NOS B - Gastric mucous membrane C - Esophagus, NOS D - Esophagus, NOS E - COLON BIOPSY F - Rectum, NOS Procedures: Special Stain Group II Surgery Specimen Level IV Alcian Blue/PAS (control) HEADER OPERATION: Colonoscopy with biopsies, EGD with biopsies PRE-OP DIAGNOSIS: Anal cancer, diarrhea TISSUE SUBMITTED: A - Duodenum, B - Gastric body, C - Distal esophagus, D - Esophageal ulcer, E - Random colon, F - Anorectal polyp biopsy MICROSCOPIC DIAGNOSIS A. Duodenum, biopsy: Fragments of duodenal mucosa, no pathologic diagnosis. B. Gastric body, biopsy: Moderate chronic active gastritis. See comment. C. Distal esophagus, biopsy: Fragments of gastroesophageal mucosa with focal intestinal metaplasia (goblet cell metaplasia), consistent with Morgan's esophagus. Moderate chronic inflammation and mild acute inflammation. Negative for dysplasia. See comment. D. Esophageal ulcer, biopsy: Fragments of squamous epithelium with chronic inflammation. E. Colon, random biopsy: Tubular adenoma (one fragment). Additional fragments of colonic mucosa, no pathologic diagnosis. F. Anorectal polyp, biopsy: Favor mucosal prolapse syndrome. SJ:alfie 03/13/2023 COMMENT B. The results of immunohistochemistry for Helicobacter pylori will be reported separately ([id number]). C. Immunohistochemistry ([id number]) for P53 and Ki-67 will be performed and results will be reported separately. Alcian blue/PAS stain with matched control is used in the evaluation of the specimen. MICROSCOPIC DESCRIPTION Slides are reviewed. GROSS DESCRIPTION A - Received in fixative is one container labeled with the patient's name and designated duodenum biopsy. The specimen consists of multiple irregular fragments of light partida soft tissue that in aggregate measure 0.7 x 0.3 x 0.1 cm. The specimen is totally submitted in one cassette. B - Received in fixative is one container labeled with the patient's name and designated gastric body. The specimen consists of multiple irregular fragments of light partida soft tissue that in aggregate measure 1.5 x 0.3 x 0.1 cm. The specimen is totally submitted in one cassette. C - Received in fixative is one container labeled with the patient's name and designated distal esophagus. The specimen consists of multiple irregular fragments of light partida soft tissue that in aggregate measure 1.0 x 0.3 x 0.1 cm. The specimen is totally submitted in one cassette. D - Received in fixative is one container labeled with the patient's name and designated esophageal ulcer. The specimen consists of two irregular fragments of light partida soft tissue that in aggregate measure 0.8 x 0.3 x 0.1 cm. The specimen is totally submitted in one cassette. E - Received in fixative is one container labeled with the patient's name and designated random colon. The specimen consists of multiple irregular fragments of light partida soft tissue that in aggregate measure 2.0 x 0.5 x 0.1 cm. The specimen is totally submitted in one cassette. F - Received in fixative is one container labeled with the patient's name and designated anorectal polyp biopsy. The specimen consists of one irregular fragment of light partida soft tissue that measures 0.5 x 0.4 x 0.2 cm. The specimen is totally submitted in one cassette. / SJ:rg 03/12/2023 TC:3 CPT: 50290 x6, 41432
--- NOTE | 2023-03-12 09:15 | IMM_PTH ---
PATIENT: JEANIE HOBSON LOC: EN U#:[id number] AGE/SX: 57/F ROOM: RE03/12/[address]: Dr. Iggy Clay DO : 1965 BED: DIS: 03/12/2023 SPEC #: [id number] RECD: 03/12/23 13:24 STATUS: MARTINE REQ #: [id number] SONG: 03/12/23 09:[address]: Iggy Clay DEPT: IMMUNOHISTOCHEMISTRY RECD BY: Gabbi Drake ENTERED: 03/12/23 13:24 SP TYPE: IMMUNO OTHR DR: Dr. Leslie Townsend MD Tissues: B - Stomach, NOS C - Esophagus, NOS Procedures: H Pylori (initial) P53 (initial) KI-67 (add) PHYSICIAN & INSTITUTION [place] [id number] SPECIMEN INFORMATION: Tissue Source: B - Gastric body, C - Distal esophagus Clinical Info: Anal cancer, diarrhea Specimen Number: [id number] B & C CPT code: 22436 x2, 51528 METHODOLOGY: Deparaffinized sections of prefer/formalin-fixed tissue or PAP/DQ stained slides are incubated with monoclonal/polyclonal antibodies/oligonucleotide probes. Localization is made via biotin free immunoperoxidase method. Appropriate controls are performed and reacted as expected. Results on target cell population are indicated in the following table: RESULTS: ANTIBODY / CLONE RESULT Block B H Pylori (polyclonal) positive Block C P53 (DO-7) positive, focal, wild type pattern Ki-67 (30-9) positive, low These tests were developed and their performance characteristics determined by [facility]. They may not have been cleared or approved by the U.S. Food and Drug Administration. The FDA has determined that such clearance or approval is not necessary. The above immunohistochemical/dualISH markers are ordered and reviewed by the Pathologist. INTERPRETATION: B. Gastric body, biopsy: Positive for Helicobacter pylori organisms. C. Distal esophagus, biopsy: Negative for dysplasia. ANITA:alfie 03/14/2023
--- NOTE | 2023-03-12 09:50 | OP.EGD_ITS ---
Patient Name: Jenn Snyder Procedure Date: 03/12/2023 9:06 AM Date of : 1965 Age: 57 Procedure: Upper GI endoscopy Indications: Epigastric abdominal pain, Functional Dyspepsia, Failure to respond to medical treatment Providers: Iggy Clay DO Medicines: Monitored Anesthesia Care Patient Profile: This is a 57 year old female. Refer to note in patient chart for documentation of history and physical. Patient has symptoms of chronic abdominal cramping, chronic epigastric abdominal pain and chronic dyspepsia. Complications: No immediate complications. Procedure: Pre-Anesthesia Assessment: - Prior to the procedure, a History and Physical was performed, and patient medications and allergies were reviewed. The patient is competent. The risks and benefits of the procedure and the sedation options and risks were discussed with the patient. All questions were answered and informed consent was obtained. Patient identification and proposed procedure were verified by the physician in the pre-procedure area. Mental Status Examination: alert and oriented. Airway Examination: normal oropharyngeal airway and neck mobility. Respiratory Examination: clear to auscultation. CV Examination: normal. Prophylactic Antibiotics: The patient does not require prophylactic antibiotics. Prior Anticoagulants: The patient has taken no anticoagulant or antiplatelet agents. ASA Grade Assessment: III - A patient with severe systemic disease. After reviewing the risks and benefits, the patient was deemed in satisfactory condition to undergo the procedure. The anesthesia plan was to use monitored anesthesia care (MAC). Immediately prior to administration of medications, the patient was re-assessed for adequacy to receive sedatives. The heart rate, respiratory rate, oxygen saturations, blood pressure, adequacy of pulmonary ventilation, and response to care were monitored throughout the procedure. The physical status of the patient was re-assessed after the procedure. After obtaining informed consent, the endoscope was passed under direct vision. Throughout the procedure, the patient's blood pressure, pulse, and oxygen saturations were monitored continuously. The Colonoscope was introduced through the mouth, and advanced to the second part of duodenum. The upper GI endoscopy was accomplished without difficulty. The patient tolerated the procedure well. Scope In: 9:16:35 AM Scope Out: 9:23:30 AM Total Procedure Duration Time 0 hours 6 minutes 55 seconds Findings: The Z-line was irregular and was found 39 cm from the incisors. Biopsies were taken with a cold forceps for histology. Verification of patient identification for the specimen was done. Estimated blood loss was minimal. A hiatal hernia was present. Mild portal hypertensive gastropathy was found in the gastric body. Biopsies were taken with a cold forceps for histology. Verification of patient identification for the specimen was done. Estimated blood loss was minimal. Biopsies were taken with a cold forceps for Helicobacter pylori testing. Verification of patient identification for the specimen was done. Estimated blood loss was minimal. Patchy mildly erythematous mucosa without active bleeding and with no stigmata of bleeding was found in the duodenal bulb. Biopsies were taken with a cold forceps for histology. Verification of patient identification for the specimen was done. Estimated blood loss was minimal. Impression: - Z-line irregular, 39 cm from the incisors. Biopsied. - Hiatal hernia. - Portal hypertensive gastropathy. Biopsied. - Erythematous duodenopathy. Biopsied. Recommendation: - Discharge patient to home. - Resume previous diet. - Continue present medications. - Await pathology results. Procedure Code(s): --- Professional --- 06450, Esophagogastroduodenoscopy, flexible, transoral; with biopsy, single or multiple CPT copyright 2021 [employer] [employer]. All rights reserved. The codes documented in this report are preliminary and upon leakage tester review may be revised to meet current compliance requirements. Iggy Clay DO 03/12/2023 9:50:33 AM This report has been signed electronically. Number of Addenda: 0 Note Initiated On: 03/12/2023 9:06 AM
--- NOTE | 2023-03-12 09:50 | OP.CCLET_ITS ---
03/12/2023 Leslie Townsend [address] [place] [address] Re : Upper GI endoscopy procedure for Jenn Snyder Dear Dr. Townsend This procedure was performed on Sunday, March 12, 2023. My impressions and recommendations are as follows: Impressions : - Z-line irregular, 39 cm from the incisors. Biopsied. - Hiatal hernia. - Portal hypertensive gastropathy. Biopsied. - Erythematous duodenopathy. Biopsied. Recommendations : - Discharge patient to home. - Resume previous diet. - Continue present medications. - Await pathology results. My findings are described in the full procedure note, which is enclosed. If I can be of further assistance, please feel free to contact me at . Sincerely, Iggy Friend, 03/12/2023 9:50:33 AM This report has been signed electronically.
--- NOTE | 2023-03-12 09:54 | OP.CCLET_ITS ---
03/12/2023 Leslie Townsend [address] [place] [address] Re : Colonoscopy procedure for Jenn Snyder Dear Dr. Townsend This procedure was performed on Sunday, March 12, 2023. My impressions and recommendations are as follows: Impressions : - Preparation of the colon was inadequate. - One 5 mm polyp in the rectum, removed with a cold snare. Resected and retrieved. - Diverticulosis in the recto-sigmoid colon and in the sigmoid colon. - Stool in the entire examined colon. Biopsied. Recommendations : - Discharge patient to home. - Resume previous diet. - Continue present medications. - Await pathology results. - Repeat colonoscopy in 6 months because the bowel preparation was suboptimal. My findings are described in the full procedure note, which is enclosed. If I can be of further assistance, please feel free to contact me at . Sincerely, Iggy Friend, DO 03/12/2023 9:53:38 AM This report has been signed electronically.
--- NOTE | 2023-03-12 09:54 | OP.COLON_ITS ---
Patient Name: Jenn Snyder Procedure Date: 03/12/2023 9:23 AM Date of : 1965 Age: 57 Procedure: Colonoscopy Indications: Clinically significant diarrhea of unexplained origin Providers: Iggy Clay DO Medicines: Monitored Anesthesia Care Patient Profile: This is a 57 year old female. Refer to note in patient chart for documentation of history and physical. Patient has symptoms of chronic abdominal cramping, chronic epigastric abdominal pain and chronic dyspepsia. Last Colonoscopy: several years ago. Complications: No immediate complications. Procedure: Pre-Anesthesia Assessment: - Prior to the procedure, a History and Physical was performed, and patient medications and allergies were reviewed. The patient is competent. The risks and benefits of the procedure and the sedation options and risks were discussed with the patient. All questions were answered and informed consent was obtained. Patient identification and proposed procedure were verified by the physician in the pre-procedure area. Mental Status Examination: alert and oriented. Airway Examination: normal oropharyngeal airway and neck mobility. Respiratory Examination: clear to auscultation. CV Examination: normal. Prophylactic Antibiotics: The patient does not require prophylactic antibiotics. Prior Anticoagulants: The patient has taken no anticoagulant or antiplatelet agents. ASA Grade Assessment: III - A patient with severe systemic disease. After reviewing the risks and benefits, the patient was deemed in satisfactory condition to undergo the procedure. The anesthesia plan was to use monitored anesthesia care (MAC). Immediately prior to administration of medications, the patient was re-assessed for adequacy to receive sedatives. The heart rate, respiratory rate, oxygen saturations, blood pressure, adequacy of pulmonary ventilation, and response to care were monitored throughout the procedure. The physical status of the patient was re-assessed after the procedure. After I obtained informed consent, the scope was passed under direct vision. Throughout the procedure, the patient's blood pressure, pulse, and oxygen saturations were monitored continuously. The Colonoscope was introduced through the anus and advanced to the cecum, identified by the appendiceal orifice, ileocecal valve and palpation. The colonoscopy was performed without difficulty. The patient tolerated the procedure well. The quality of the bowel preparation was inadequate. Scope In: 9:26:57 AM Scope Withdrawal Time 0 hours 10 minutes 19 seconds Scope Out: 9:42:44 AM Total Procedure Duration Time 0 hours 15 minutes 47 seconds Findings: The perianal and digital rectal examinations were normal. A 5 mm polyp was found in the rectum. The polyp was sessile. The polyp was removed with a cold snare. Resection and retrieval were complete. Verification of patient identification for the specimen was done. Estimated blood loss was minimal. A few small and large-mouthed diverticula were found in the recto-sigmoid colon and sigmoid colon. Stool was found in the entire colon, precluding visualization. Biopsies for histology were taken with a cold forceps from the entire colon for evaluation of microscopic colitis. Verification of patient identification for the specimen was done. Estimated blood loss was minimal. Impression: - Preparation of the colon was inadequate. - One 5 mm polyp in the rectum, removed with a cold snare. Resected and retrieved. - Diverticulosis in the recto-sigmoid colon and in the sigmoid colon. - Stool in the entire examined colon. Biopsied. Recommendation: - Discharge patient to home. - Resume previous diet. - Continue present medications. - Await pathology results. - Repeat colonoscopy in 6 months because the bowel preparation was suboptimal. Procedure Code(s): --- Professional --- 52931, Colonoscopy, flexible; with removal of tumor(s), polyp(s), or other lesion(s) by snare technique 74855, 59, Colonoscopy, flexible; with biopsy, single or multiple CPT copyright 2021 [employer]. All rights reserved. The codes documented in this report are preliminary and upon choir member review may be revised to meet current compliance requirements. Iggy Clay DO 03/12/2023 9:53:38 AM This report has been signed electronically. Number of Addenda: 0 Note Initiated On: 03/12/2023 9:23 AM
--- NOTE | 2023-03-12 10:20 | SUR.PHASEI ---
DR. HAYS CONSULTED ABOUT PATIENT HAVING SOME ORTHOSTATIC HYPOTENSION AND TACHY CARDIA. HE TOLD ME TO WATCH HER A LITTLE LONGER AND LET HER FLUIDS RUN WIDE OPEN. HER BLOOD PRESSURE NORMALIZED PRIOR TO TAKING HER TO PHASE 2. DR. HAYS AWARE AND SAID TO LEAVE IV IN UNTIL FLUIDS ARE DONE.
== END 2023-03-12 10:53 | disposition home or self-care (01) ==
LOC: EN 08:30 → AC 08:33
PROVIDERS: PCP Internal Medicine; Referring Provider Internal Medicine; Visit Provider Internal Medicine Gastroenterology
PROC: 0DJD8ZZ Inspection of Lower Intestinal Tract, Via Natural or Artificial Opening Endoscopic (ICD-10-PCS; CPT 45378; principal; 2023-03-12 09:10)
DX: K44.9 Diaphragmatic hernia without obstruction or gangrene (principal); K76.6 Portal hypertension; C21.0 Malignant neoplasm of anus, unspecified; Z90.49 Acquired absence of other specified parts of digestive tract; K62.1 Rectal polyp; R10.13 Epigastric pain; K57.30 Diverticulosis of large intestine without perforation or abscess without bleeding; F17.200 Nicotine dependence, unspecified, uncomplicated; B96.81 Helicobacter pylori [H. pylori] as the cause of diseases classified elsewhere; K58.0 Irritable bowel syndrome with diarrhea; K29.50 Unspecified chronic gastritis without bleeding; D12.6 Benign neoplasm of colon, unspecified
CPT/HCPCS: 45385; 43239; 45380; 88305; 88313; 88341; 88342; J7120; J2405

== ENCOUNTER 2024-09-18 06:38 | Day surgery (SDC) | payer MEDICAID, SELFPAY ==
[2024-09-12 08:59] LABS: Hematocrit 42.5 % (37-47); Hemoglobin 14.2 g/dL (12.0-15.0); Mean Corp Hgb Conc 33.4 g/dL (32-36); Mean Corpuscular Hgb 31.8 pg (27.0-32.0); Mean Corpuscular Volume 95.3 fL (81-99); Mean Platelet Vol. 9.8 fl (6.2-12.0); Platelet Count 275 K/mm3 (150-450); RBC Distribution Width CV 13.2 % (11.6-14.6); Red Blood Count 4.46 M/mm3 (4.2-5.4); White Blood Count 9.2 K/mm3 (4.4-11.0)
[2024-09-12 09:33] LABS: Anion Gap 12 (5-15); BUN 12 mg/dL (4-19); Carbon Dioxide 21.1 mmol/L (21.0-32.0); Chloride 106 mmol/L (98-108); Creatinine, Serum 0.59 mg/dL (0.70-1.20); EST Glomerular Filtration Rate 104 (>60); Glucose 94 mg/dL (70-99); Sodium Level 140 mmol/L (133-145)
--- NOTE | 2024-09-12 11:28 | PAT.ANE_ITS ---
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 When Was Last Pacemaker Check QUESTION #4 FULL TEXT: You/Your Family Experience fever (hyperthermia) with Anesthesia Last Oral Intake Last Oral intake: Last Oral Intake NPO since Meds taken in AM with sips of water? 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 Female Yes 09/05/24 11:20 HX of Motion Sickness No 09/05/24 11:20 HX of N/V After Surgery No 09/05/24 11:20 Non-Smoker No 09/05/24 11:20 Duration of Surgery greater Yes 09/05/24 11:20 than 60 minutes Number of Risk Factors 2 09/05/24 11:20 PONV Score Moderate Risk 09/05/24 11:20 Height & Weight Height & Weight: Anesthesia: Height & Weight Height 5 ft 6 in 03/12/23 08:51 Respiratory Assessment Respiratory Assessment - broadcast maintenance technician: Respiratory Tract Infection Hx - broadcast maintenance technician Hx Respiratory Tract Infection No 09/05/24 11:20 STOP Sleep Apnea STOP Sleep Apnea - broadcast maintenance technician: STOP Sleep Apnea - broadcast maintenance technician Hx Hypertension Yes: CONTROLLED WITH MED 09/05/24 11:20 Hx Sleep Apnea No 09/05/24 11:20 CPAP BIPAP Do you snore loudly (louder Yes 09/05/24 11:20 than talking or can be heard Do you often feel tired/ Yes 09/05/24 11:20 fatigued/ sleepy during daytime? Has anyone observed you stop No 09/05/24 11:20 breathing during sleep? STOP Results Positive 09/05/24 11:20 QUESTION #5 FULL TEXT : Do you snore loudly (louder than talking or can be heard through closed doors)? 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 Specify any problems Hx of Preganancy in last 3 No 09/05/24 11:20 Months Nurse Filling Out Transfusion DSCHRIBER 09/05/24 11:20 & Questions: Date: 09/05/24 09/05/24 11:20 Time: 11:22 09/05/24 11:20 Patient unable to answer at this time (ie. confused, unrespo /Reproduction History /Reproductive History - broadcast maintenance technician: /Reproductive Hx- broadcast maintenance technician Hx Now No 09/05/24 11:20 Gestational Age (in weeks): EDC: Hx Hx Para Hx Section SAB No 09/05/24 11:20 PFSH Medical History (Updated 09/05/24 @ 11:30 by oRcio Merritt) Loss of hearing Alcohol use Bladder disease High cholesterol Back pain Morgan esophagus Gastric reflux Asthma Shortness of breath on exertion Chronic cough History of pain when walking History of edema Hypertension COPD (chronic obstructive pulmonary disease) Wears glasses Wears dentures Cancer Depression Restless legs History of IBS History of diverticulitis Smoker Abdominal pain Anxiety Home Medications ?Medication ?Instructions ?Recorded ?Last Taken ?Type albuterol sulfate 90 mcg/actuation 2 puff inhalation Q 4H PRN PRN 02/19/20 Unknown Rx aerosol inhaler Dyspnea ##1 pantoprazole 40 mg tablet,delayed 40 mg PO BID 90 days #180 tabs 06/12/24 Unknown Rx release sucralfate 1 gram tablet 1 g PO BID #60 tabs 06/12/24 Unknown Rx cholecalciferol (vitamin D3) 25 25 mcg PO DAILY Unknown History mcg (1,000 unit) capsule (Vitamin D3) citalopram 20 mg tablet 20 mg PO DAILY 09/05/24 Unkn own History lisinopril 40 mg tablet 40 mg PO DAILY 09/05/24 Unkn own History vibegron 75 mg tablet (Gemtesa) 75 mg PO DAILY 5 Unknown History Allergy/AdvReac Type Severity Reaction Status Date / Time doxycycline Allergy Intermediate unk Verified 09/05/24 11:15 Family History Mother CAD (coronary artery disease) Diabetes Brother Hypertension Sister Uterine cancer Sister Diabetes Surgical History (Updated 09/05/24 @ 11:30 by Rocio Merritt) History of esophagogastroduodenoscopy (EGD) Hx of colonoscopy History of surgery on wrist Hx of breast reduction, elective History of axillary surgery History of tonsillectomy Hx laparoscopic cholecystectomy H/O tubal ligation H/O gastric bypass Social History Smoking Status: Current every day smoker tobacco type: cigarettes Audit: Pertinent Findings Pertinent Findings EKG Perinent findings: October 16, 2022. Sinus tachycardia at 119 beats per minutes. Recommendation Anesthesia Recommendation Anesthesia recommendation: OPTIMIZED for anesthesia
[2024-09-18 07:05] VITALS: BP 165/104; PULSE 85; RESP 17; TEMP 36.3; O2SAT 97; BMI 40.9
[2024-09-18] MEDS: Lactated Ringers 1,000 ML 15 ML IV (07:10)
--- NOTE | 2024-09-18 07:22 | PCM.PRE.AN2 ---
ASA Classification* ASA Classification ASA Classification: 3 Assessment & Plan Anesthesia* Anesthesia Assessment Anesthesia Assessment: Discussed sedation and/or anesthesia options, risks, benefits, and alternatives with patient/parents/legal guardian/POA. Questions invited. The patient/parents/legal guardian/POA seems to understand and agrees to proceed with anesthesia plan. Reviewed the physical assessment, medical history, allergy history and patient home medications list prior to surgery/procedure/anesthetic and documented any changes. Performed airway and anesthesia risk assessments. Anesthesia Type Anesthesia Type: General History Source History Obtained from:: Patient and Chart Anesthesia Focused Assessment* Temperature: 97.4 F Pulse Rate: 85 Blood Pressure: 165/104 Respiratory Rate: 17 Pulse Ox: 97 Oxygen Delivery Method: Room Air Airway Assessment Mouth opens: >3 cm Mallampati Score: III Teeth Condition: Dentures (upper and lower) Neck Range of motion (ROM): Full ROM Focused Labs Anesthesia Preop lab: CBC WBC 9.2 K/mm3 (4.4-11.0) 09/12/24 08:09/12/24 RBC 4.46 M/mm3 (4.2-5.4) 09/12/24 08:09/12/24 Hgb 14.2 g/dL (12.0-15.0) 09/12/24 08:09/12/24 Hct 42.5 % (37-47) 09/12/24 08:09/12/24 Plt Count 275 K/mm3 (150-450) 09/12/24 08:30 09/12/24 CHEMISTRY Potassium 4.0 mmol/L (3.3-5.1) 09/12/24 08:09/12/24 Sodium 140 mmol/L (133-145) 09/12/24 08:09/12/24 Magnesium 2.2 mg/dL (1.6-2.6) 06/26/19 04:39 06/26/19 BUN 12 mg/dL (4-19) 09/12/24 08:09/12/24 Creatinine 0.59 mg/dL (0.70-1.20) L 09/12/24 08:09/12/24 Glucose 94 mg/dL (70-99) 09/12/24 08:09/12/24 POC Glucose 150 mg/dL (70-110) H 06/26/19 10:21 06/26/19 COAG PT 12.3 SECONDS (11.7-14.9) 02/18/20 09:17 02/18/20 Pre-Assessment Diagnosis/Proposed Procedure Planned Operative Procedure(s): CYTO MID URETHRAL SLING Anesthesia History 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 When Was Last Pacemaker Check QUESTION #4 FULL TEXT: You/Your Family Experience fever (hyperthermia) with Anesthesia Last Oral Intake Last Oral intake: Last Oral Intake NPO since 00:00 09/18/24 07:05 Meds taken in AM with sips of No 09/18/24 07:05 water? 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 - guidance secretary Female Yes 09/05/24 11:20 HX of Motion Sickness No 09/05/24 11:20 HX of N/V After Surgery No 09/05/24 11:20 Non-Smoker No 09/05/24 11:20 Duration of Surgery greater Yes 09/05/24 11:20 than 60 minutes Number of Risk Factors 2 09/05/24 11:20 PONV Score Moderate Risk 09/05/24 11:20 Height & Weight Height & Weight: Anesthesia: Height & Weight Height 5 ft 6 in 09/18/24 07:05 Weight: 115 kg 09/18/24 07:05 Body Mass Index (BMI) 40.9 09/18/24 07:05 Respiratory Assessment Respiratory Assessment - guidance secretary: Respiratory Tract Infection Hx - guidance secretary Hx Respiratory Tract Infection No 09/05/24 11:20 STOP Sleep Apnea STOP Sleep Apnea - guidance secretary: STOP Sleep Apnea - guidance secretary Hx Hypertension Yes: CONTROLLED WITH MED 09/05/24 11:20 Hx Sleep Apnea No 09/05/24 11:20 CPAP BIPAP Do you snore loudly (louder Yes 09/05/24 11:20 than talking or can be heard Do you often feel tired/ Yes 09/05/24 11:20 fatigued/ sleepy during daytime? Has anyone observed you stop No 09/05/24 11:20 breathing during sleep? STOP Results Positive 09/05/24 11:20 QUESTION #5 FULL TEXT : Do you snore loudly (louder than talking or can be heard through closed doors)? 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 Specify any problems Hx of Preganancy in last 3 No 09/05/24 11:20 Months Nurse Filling Out Transfusion DSCHRIBER 09/05/24 11:20 & Questions: Date: 09/05/24 09/05/24 11:20 Time: 11:22 09/05/24 11:20 Patient unable to answer at this time (ie. confused, unrespo /Reproduction History /Reproductive History - guidance secretary: /Reproductive Hx- guidance secretary Hx Now No 09/05/24 11:20 Gestational Age (in weeks): EDC: Hx Hx Para Hx Section SAB No 09/05/24 11:20 Active Medications Active Medications: Current Medications Generic Name Dose Route Start Last Admin Trade Name Freq PRN Reason Stop Dose Admin Cefazolin Sodium 2 gm/ Sodium 110 mls @ 150 mls/hr 09/18/24 08:15 Chloride IV 09/18/24 08:58 INTRAOP ONE Lactated Ringer's 1,000 mls @ 15 mls/hr 09/18/24 07:00 09/18/24 07:10 IV 15 mls/hr .Q48H KAYLA Administration PFSH Medical History Loss of hearing Alcohol use Bladder disease High cholesterol Back pain Morgan esophagus Gastric reflux Asthma Shortness of breath on exertion Chronic cough History of pain when walking History of edema Hypertension COPD (chronic obstructive pulmonary disease) Wears glasses Wears dentures Cancer Depression Restless legs History of IBS History of diverticulitis Smoker Abdominal pain Anxiety Home Medications ?Medication ?Instructions ?Recorded ?Last Taken ?Type albuterol sulfate 90 mcg/actuation 2 puff inhalation Q4H PRN PRN 02/19/20 Unknown Rx aerosol inhaler Dyspnea ##1 pantoprazole 40 mg tablet,delayed 40 mg PO BID 90 days #180 tabs 06/12/24 09/17/24 Rx release sucralfate 1 gram tablet 1 g PO BID #60 tabs 06/12/24 09/17/24 Rx cholecalciferol (vitamin D3) 25 25 mcg PO DAILY 09/05/24 09/17/24 History mcg (1,000 unit) capsule (Vitamin D3) citalopram 20 mg tablet 20 mg PO DAILY 09/05/24 09/17/24 History lisinopril 40 mg tablet 40 mg PO DAILY 09/05/24 09/17/24 History vibegron 75 mg tablet (Gemtesa) 75 mg PO DAILY 09/05/24 09/17/24 History Allergy/AdvReac Type Severity Reaction Status Date / Time doxycycline Allergy Intermediate unk Verified 09/18/24 07:05 Family History Mother CAD (coronary artery disease) Diabetes Brother Hypertension Sister Uterine cancer Sister Diabetes Surgical History History of esophagogastroduodenoscopy (EGD) Hx of colonoscopy History of surgery on wrist Hx of breast reduction, elective History of axillary surgery History of tonsillectomy Hx laparoscopic cholecystectomy H/O tubal ligation H/O gastric bypass Social History Smoking Status: Current every day smoker tobacco type: cigarettes Review of Systems (Anesthesia) ROS Narrative System reviewed and no additional complaints, except as documented.
[2024-09-18 07:27] VITALS: BP 165/104; PULSE 85; RESP 17; TEMP 36.3; O2SAT 97
--- NOTE | 2024-09-18 08:02 | EX.PCM.DISCH ---
Discharge Instructions Diet Discharge Diet: No restrictions Activity Discharge Activity: May Shower May resume sexual activity in: 4-6 weeks Lifting Restrictions: 5 pounds Additional Activity Instructions:: No exercise, strenuous activity, dog walking, swimming, tub bathing or hot tubs Dressing / Incision Call your doctor if your incision/area has: Continuous Slow Oozing, Sudden Increased Bleeding, Increased Pain/ Swelling and Foul Smelling Discharge Call your doctor if you observe: Fever of 101 or Higher, Inability to urinate and Inability to have a bowel movement Follow Up Care Please Follow Up With: Raisa Ray MD When: The office will call to make a follow-up appointment for 1 to 2 weeks Test Results: Test results from this visit will be discussed in further detail at your follow-up appointment, if applicable. Discharge Plan Admission Attending Provider: Raisa Ray Primary Care Provider: BRUNILDA QUEEN Consulting Providers: Darrius Ortega Instructions Print Language: Tajik Discharge Orders/Prescriptions Prescriptions: New oxycodone-acetaminophen 5-325 mg tablet 1 tab PO Q8H PRN (Reason: pain) 3 Days Qty: 10 0RF cephalexin 500 mg capsule 500 mg PO Q12 3 Days Qty: 6 0RF Continued pantoprazole 40 mg tablet,delayed release (DR/EC) 40 mg PO BID 90 Days Qty: 180 3RF sucralfate 1 gram tablet 1 g PO BID Qty: 60 1RF albuterol sulfate 1 PUFF inhaler 2 puff inhalation Q4H PRN PRN (Reason: Dyspnea) Qty: 1 1RF cholecalciferol (vitamin D3) [Vitamin D3] 25 mcg (1,000 unit) capsule 25 mcg PO DAILY citalopram 20 mg tablet 20 mg PO DAILY lisinopril 40 mg tablet 40 mg PO DAILY Gemtesa 75 mg tablet 75 mg PO DAILY Referrals / Follow Up: BRUNILDA QUEEN, [employer] [Primary Care Provider] - Disposition Disposition (needs filled in before D/C Order can be placed): Home, Self Care
[2024-09-18] MEDS: Cefazolin 2 GM in 0.9% Normal Saline (100mL Bag) 100 ML IV (08:21)
[2024-09-18] MEDS: Lidocaine 1% /Epi 1:100 (20ml) 20 ML Vial (08:48)
[2024-09-18 09:05] VITALS: BP 165/104; BP 168/92; PULSE 87; RESP 16; TEMP 36.3; O2SAT 95
--- NOTE | 2024-09-18 09:10 | PCM.POST.ANE ---
Anesthesia: Postop Eval I Current Vital Signs Temperature: 97.3 F Pulse Rate: 99 Blood Pressure: 168/92 Respiratory Rate: 16 Pulse Ox: 92 Oxygen Delivery Method: Nasal Cannula Oxygen Flow Rate (L/min): 3 Assessment Airway patent: Yes Spontaneous unlabored respirations: Yes Mental status: Awake and Calm nausea: No Vomiting: No Anesthesia Complication: No Fluid Hydration Crystalloid volume administer (ml): 600 Total IV fluid infused: 600 Progress Note Anesthesia document: Postop Eval 1 completed: Yes
[2024-09-18 09:11] VITALS: BP 168/92; PULSE 99; RESP 16; TEMP 36.3; O2SAT 92
[2024-09-18 09:30] VITALS: BP 144/100; BP 165/104; PULSE 84; RESP 16; TEMP 36.3; O2SAT 92
[2024-09-18 10:14] VITALS: BP 165/104
--- NOTE | 2024-09-18 10:31 | OP.PCM_ITS ---
Operative Report (Standard) Operative Information Date of Procedure: 09/18/24 Pre-Operative Diagnosis: Stress urinary incontinence Post-Operative Diagnosis: Same Surgery/Procedure Performed: Cystoscopy, mid urethral sling insertion photographers' model: No Type of Anesthesia: General RN Documented Start/Stop Times: Operation Date: 09/18/24 08:15 Case Time Into Pre-Op 09/18/24 06:48 Out of Pre-Op 09/18/24 08:15 Anesthesia Start 09/18/24 08:21 Into Room 09/18/24 08:21 Procedure Start 09/18/24 08:38 Procedure End 09/18/24 08:55 Anesthesia End 09/18/24 09:02 Out of Room 09/18/24 09:02 Into Recovery 09/18/24 09:05 Into Phase II Recovery 09/18/24 09:41 Out of Recovery 09/18/24 09:41 Out of Phase II 09/18/24 10:22 Procedure Start Time: 08:38 Procedure Stop Time: 08:55 Select all DRAINS/GRAFTS/IMPLANTS that apply: Implanted device Implanted device details: Altis mid urethral sling Estimated Blood Loss: 20 cc Specimen collected: No Description of surgery: The patient is a 58-year-old female with stress incontinence who presents for surgical intervention. Informed consent was obtained. She was taken to the operating room and placed on the operating room table. Anesthesia monitored the head, neck, airway, IV access of vital signs throughout the case. Once anesthesia was actively ministered, she was placed into Trendelenburg and dorsolithotomy position and was prepped and draped in usual sterile fashion. A Goldberg catheter was inserted to straight drain and the bladder was emptied. The mid urethra was isolated and injected submucosally with 1% lidocaine with epinephrine for hydrostatic dissection and hemostatic control. A midline incision was made and sharp and blunt dissection was performed on either side of the urethra with care being taken to avoid entrance into the urethra or the vaginal mucosa. Using the trocars provided, the Altis mid urethral sling was placed into the transobturator complexes bilaterally and was positioned using the tensioning suture. It lay flat against the urethra. The incision was closed using running interlocking 2-0 Vicryl. The Goldberg catheter was removed and the cystoscope was inserted under direct visualization into the urinary bladder. On full evaluation there was no evidence of hemorrhage, laceration, injury to the urinary bladder. There was no foreign object within the bladder lumen. The urethra was also evaluated and was found to be normal. The cystoscope was removed. The patient was awakened and taken to the recovery room in good condition. There were no complications during this procedure. Surgical Findings: Her apical support is less than previously seen in the office. Complications Complications: No Admit VTE Documentation VTE Present on Admission: Yes VTE Mechan Device Prophylaxis: SCD's VTE Pharm Prophylaxis ordered?: No Reason prophylaxis not ordered: Treatment Not Indicated
--- NOTE | 2024-09-18 15:17 | POSTOPAN2_ITS ---
Anesthesia Postop Eval I Sum Postop Eval Completion status Anesthesia document: Postop Eval 1 completed: Yes Anesthesia Postop Eval I Summary Anesthesia Postop Eval I Summary: Anesthesia Postop Eval I: Assessment Summary Airway patent Yes 09/18/24 09:11 [email or web address] Spontaneous unlabored Yes 09/18/24 09:11 [email or web address] [email or web address] respirations Mental status Awake,Calm 09/18/24 09:11 [email or web address] [email or web address] nausea No 09/18/24 09:11 [email or web address] Vomiting No 09/18/24 09:11 [email or web address] Anesthesia Postop Eval I: Fluid Summary Crystalloid volume administer 600 09/18/24 09:11 [email or web address] (ml) Colloids volume administered ( ml) Blood Product volume administered (ml) Total IV fluid infused 600 09/18/24 09:11 [email or web address] Anesthesia Postop Eval I: Summary Notes Anesthesia Complication No 09/18/24 09:11 [email or web address] Anesthesia Complication Comment: Post-operative progress note Anesthesia: Postop Eval II Evaluation Mental status: Awake and Calm Pain Level: 1 nausea: No Vomiting: No Complications Anesthesia Complication: No
--- NOTE | 2024-09-18 15:17 | PCM.POSTANE2 ---
Anesthesia Postop Eval I Sum Postop Eval Completion status Anesthesia document: Postop Eval 1 completed: Yes Anesthesia Postop Eval I Summary Anesthesia Postop Eval I Summary: Anesthesia Postop Eval I: Assessment Summary Airway patent Yes 09/18/24 09:11 [email or web address] Spontaneous unlabored Yes 09/18/24 09:11 [email or web address] respirations Mental status Awake,Calm 09/18/24 09:11 [email or web address] nausea No 09/18/24 09:11 [email or web address] Vomiting No 09/18/24 09:11 [email or web address] Anesthesia Postop Eval I: Fluid Summary Crystalloid volume administer 600 09/18/24 09:11 [email or web address] (ml) Colloids volume administered ( ml) Blood Product volume administered (ml) Total IV fluid infused 600 09/18/24 09:11 [email or web address] Anesthesia Postop Eval I: Summary Notes Anesthesia Complication No 09/18/24 09:11 [email or web address] Anesthesia Complication Comment: Post-operative progress note Anesthesia: Postop Eval II Evaluation Mental status: Awake and Calm Pain Level: 1 nausea: No Vomiting: No Complications Anesthesia Complication: No
== END 2024-09-18 10:22 | disposition home or self-care (01) ==
LOC: SDC 06:39 → AC 06:40
PROVIDERS: PCP Nurse Practitioner; Referring Provider Urology; Visit Provider Urology
PROC: 0TJB8ZZ Inspection of Bladder, Via Natural or Artificial Opening Endoscopic (ICD-10-PCS; CPT 57288; principal; 2024-09-18 08:05)
DX: N39.3 Stress incontinence (female) (male) (principal); N32.81 Overactive bladder; N81.11 Cystocele, midline; I10 Essential (primary) hypertension; F17.210 Nicotine dependence, cigarettes, uncomplicated; Z79.899 Other long term (current) drug therapy
CPT/HCPCS: 57288; 00860; 36415; 80048; 85027; 93005; C1771; J2405

== ENCOUNTER → 2024-10-29 | Outpatient (CLI) | payer MEDICAID, SELFPAY ==
--- NOTE | 2024-10-29 08:50 | RAD_ITS ---
PROCEDURE: CHEST PA AND LATERAL 10/29/2024 REASON FOR EXAM: COUGH TECHNIQUE: Frontal and lateral views of the chest. COMPARISON: Prior study dated October 16, 2022. FINDINGS: Hardware: None Heart: The heart size is normal. Mediastinum: The mediastinal contour is unremarkable. Lungs: No acute infiltrate is seen. Bones: Degenerative changes are identified within the thoracic spine. RAD/Chest PA and Lateral IMPRESSION: NO ACUTE FINDINGS. Reading Location: [facility]-
== END | disposition home or self-care (01) ==
LOC: MTRAD 08:50
PROVIDERS: PCP Nurse Practitioner; Referring Provider Physician Assistant; Visit Provider Physician Assistant
DX: R05.9 Cough, unspecified (principal)
CPT/HCPCS: 71046